=== PATIENT | female | born 1940 | race Caucasian/White ===

== ENCOUNTER 2023-08-26 15:37 | Inpatient (IN) | payer OTHER, SELFPAY ==
--- NOTE | ~2023-08-26 | CT_ITS ---
EXAMINATION: CT HEAD WITHOUT CONTRAST CLINICAL INFORMATION: Confusion. COMPARISON: None available. TECHNIQUE: Contiguous axial imaging was performed from the skull base to vertex without intravenous administration of contrast. This CT examination was performed using dose optimization techniques as appropriate, variously including the following: *Automated exposure control *Adjustment of mA and/or kV according to patient size (this includes techniques or standardized protocols for targeted exams where dose is matched to indication/reason for exam; i.e. extremities or head) *Use of iterative reconstruction technique DLP: 562 mGy-cm FINDINGS: There is no acute intracranial hemorrhage. There is no evidence of acute/subacute cerebral or cerebellar infarction. There is no midline shift or mass effect. No extra-axial fluid collection. The ventricles are normal in size. The ocular lenses are surgically absent. The visualized paranasal sinuses are clear. The mastoid air cells are well aerated. CT/CT head/brain wo IV con IMPRESSION: No acute intracranial pathology.
--- NOTE | ~2023-08-26 | XR_ITS ---
EXAMINATION: XR CHEST CLINICAL INFORMATION: Confusion COMPARISON: None available. TECHNIQUE: 2 views of the chest were obtained. FINDINGS: The cardiac and mediastinal contours are normal. The lungs are clear. No pleural effusion or pneumothorax. Scoliosis and degenerative changes of the thoracolumbar spine. Degenerative changes at the shoulders. XR/XR chest 2V IMPRESSION: No evidence for acute disease in the chest.
[2023-08-26 15:38] VITALS: BP 134/80; PULSE 103; RESP 18; TEMP 36.7; O2SAT 95; BMI 27.3
--- NOTE | 2023-08-26 15:41 | ED_ITS ---
HPI - Psych General Chief Complaint: Psychiatric Symptoms Stated Complaint: crisis Time Seen by Provider: 08/26/23 17:55 Source: patient, family (Patient's son), RN notes reviewed and old records reviewed Mode of arrival: ambulatory Limitations: language barrier (Patient and family declined interpreting service) History of Present Illness ED Provider: Paul HPI Narrative: 83-year-old female with past medical history significant for schizophrenia, hypertension presents for evaluation of paranoia Per the patient she is here because ?I have been confused for a couple of weeks. ? The patient's son states that the patient has been paranoid for the last couple of weeks. The patient also has delusions She believes that members of her holiness are gathering a video of ?all the since I made my entire life to show to the whole holiness. ? The patient was having extrapyramidal symptoms from her previous psych medications Your per the patient's son about 2 and half weeks the patient was started on Abilify has been tapered up The patient's extrapyramidal symptoms have improved but the patient's paranoia has not improved Per the patient's son, this has happened a few times in the past The patient has not had any recent falls or trauma. She denies any other complaints or concerns Related Data Home Medications ?Medication ?Instructions ?Recorded ?Confirmed acetaminophen 325 mg tablet (Pain 650 mg PO NEEDED 08/26/23 08/26/23 Relief (acetaminophen)) amlodipine 2.5 mg tablet 2.5 mg PO DAILY 08/26/23 08/26/23 aripiprazole 5 mg tablet (Abilify) 15 mg PO DAILY 08/26/23 08/26/23 docusate sodium 100 mg capsule 100 mg PO BID 08/26/23 08/26/23 loratadine 10 mg tablet 10 mg PO DAILY 08/26/23 08/26/23 metformin 500 mg tablet 500 mg PO QAM 08/26/23 08/26/23 olanzapine 10 mg tablet 10 mg PO BEDTIME 08/26/23 08/26/23 omeprazole 20 mg capsule,delayed 40 mg PO DAILY 08/26/23 08/26/23 release trazodone 100 mg tablet 100 - 200 mg PO BEDTIME PRN 08/26/23 08/26/23 Insomnia valsartan 160 mg tablet 160 mg PO DAILY 08/26/23 08/26/23 Allergies Allergy/AdvReac Type Severity Reaction Status Date / Time Unable to Assess Allergy Verified 08/26/23 15:48 Review of Systems 2 Constitutional: Constitutional: Denies body ache(s), Denies chills, Denies fever(s), Denies frequent falls and Denies headache(s) ENT: Denies headache(s) Cardiovascular: Cardiovascular: Denies chest pain and Denies dyspnea Respiratory: Respiratory: Denies cough and Denies dyspnea Gastrointestinal: Gastrointestinal: Denies abdominal pain, Denies nausea and Denies vomiting Musculoskeletal: Musculoskeletal: Denies back pain Integumentary/Breasts: Skin/Breast: Denies rash Neurologic: Denies frequent falls and Denies headache(s) Psychiatric: Psychiatric: Reports paranoia PMFSH Social History Social History Smoked in Last 30 Days: No Use of substances other than those prescribed or required for medical reasons: No Advance Directives: No Advance Directives Information Provided: No Do you have a plan to hurt others: No Plan Physical Exam 2 Vital Signs: Vital Signs: Last Vital Signs Temp 97.8 F 08/26/23 18:59 Pulse 83 08/26/23 18:59 Resp 16 08/26/23 18:59 BP 114/51 L 08/26/23 18:59 Pulse Ox 99 08/26/23 18:59 O2 Del Method Room Air 08/26/23 18:23 BMI result Body Mass Index 27.3 Const: General: healthy appearing, comfortable, no acute distress, alert and awake Nutritional Appearance: well nourished Orientation/consciousness: p atient oriented x3 HEENT: Head: Yes normocephalic and Yes atraumatic Eyes: Eyelids: Yes eyelids normal Conjunctivae: conjunctivae normal S clerae: sclerae normal Corneas: corneas normal Pupils: Equal, round and reactive pupils present EOM: EOMs intact bilaterally Neck: Neck: Yes full ROM Resp: Effort & Inspection: normal respiratory effort, able to speak in complete sentences and not labored Skin: General skin exam: elasticity normal Neuro: General: patient oriented x3 Cranial nerves: Yes Equal, round and reactive pupils present and Yes Bilaterally intact EOM present Cognition (Neuro): normal cognition Course Course Course Narrative: This is a Rapid Medical Examination (RME) performed by Williams Dixon PA-C in triage. Full HPI, ROS, assessment and treatment plan per primary provider in the Main ED. 83 yo sinhala speaking female w/ hx of schizophrenia and depression here for eval of visual hallucinations and paranoid delusions x1 week. patient reports feeling increasingly confused. son at bedside to assist w/ history. son believes patient has stopped taking her medications. denies SI/HI. complains of chronic right hip pain. no injury/ trauma. Plan: medical clearance Reevaluation(s) Reevaluation #1: Patient is seen with the care team, she will be a bed search for inpatient psychiatric care. Physician observation starts now. Time: 00:37 Medications Administered Discontinued Medications Generic Name Dose Route Start Last Admin Trade Name Freq PRN Reason Stop Dose Admin Magnesium Sulfate 2 gm in 50 mls @ 25 mls/hr 08/26/23 19:10 08/26/23 19:55 Magnesium Sulfate/H2o IV 08/26/23 21:09 25 mls/hr ONCE ONE Administration Magnesium Oxide 400 mg 08/26/23 19:10 08/26/23 19:55 Magnesium Oxide 400 Mg Tablet PO 08/26/23 19:11 400 mg ONCE ONE Administration Medical Decision Making Medical Decision Making [facility] Narrative: [age]-year-old female presents for evaluation of paranoid delusions. She does have a diagnosed history of schizophrenia. This has been going on for about 2- 1/2 weeks since her medications have been adjusted. Plan for medical clearance and likely care team evaluation. Her magnesium is noted to be low at 1.4 and this will be replaced IV and orally. We will get a CT scan of the brain for evaluation of other etiology of her paranoia but is likely related to her psych history Differential Diagnosis Differential Diagnoses: The differential diagnosis associated with the presentation includes Schizophrenia Decompensated schizophrenia Hypomagnesemia Altered mental status CVA less likely Intracranial mass less likely Lab Data [facility] Lab Attestation statement: I reviewed the patient's lab results. Patient patient has a mild leukocytosis to 11.0. She also has a mild anemia with a hemoglobin 11.9 hematocrit 35.9. There is no significant left shift. Patient's chemistries are significant for a random glucose of 152. No evidence of DKA. Magnesium of 1.4 that was previously mentioned. Thyroid studies and LFTs within normal limits. 08/26/23 16:12 08/26/23 16:12 Labs: Lab Results 08/26/23 08/26/23 Range/Units 16:12 18:35 WBC 11.0 H (4.8-10.8) X10*3/uL RBC 3.94 L (4.20-5.50) X10*6/uL Hgb 11.9 L (12.0-16.0) g/dl Hct 35.9 L (37.0-47.0) % MCV 91.1 (80.0-98.0) fL MCH 30.2 (27.0-33.0) pg MCHC 33.1 (31.0-35.0) g/dl RDW 12.1 (11.0-16.0) % Plt Count 289 (160-400) X10*3/uL MPV 10.3 (9.4-12.3) fL Immature Gran % (Auto) 0.5 H (0.0-0.4) % Neut % (Auto) 57.1 (45-73) % Lymph % (Auto) 24.5 (20-40) % [place] % (Auto) 5.7 (2-11) % Eos % (Auto) 11.3 H (0-4) % Baso % (Auto) 0.9 (0-2) % Lymph # (Auto) 2.7 (1.2-4.9) X10*3/uL [place] # (Auto) 0.6 (0.1-1.2) X10*3/uL Eos # (Auto) 1.2 H (0.0-0.4) X10*3/uL Baso # (Auto) 0.1 (0.0-0.2) X10*3/uL Abs Immat Gran (auto) 0.05 H (0.00-0.03) X10*3/uL Absolute Neuts (auto) 6.3 (2.0-8.3) x10*3/uL Absolute Nucleated RBC 0.000 (0.0-0.012) X10*3/uL Nucleated RBC % (auto) 0.0 (0.0-0.2) /100WBC Sodium 138 (135-145) mmol/L Potassium 4.4 (3.3-5.1) mmol/L Chloride 106 (96-108) mmol/L Carbon Dioxide 22 (22-29) mmol/L Anion Gap 14 (12-20) BUN 18 H (9-16) mg/dL Creatinine 0.95 (0.5-1.4) mg/dL Estim Creat Clear Calc 36.0 Estimated GFR 56 Random Glucose 152 H (60-115) mg/dL Calcium 10.0 (8.4-10.2) mg/dL Magnesium 1.4 L* (1.6-2.6) mg/dL Total Bilirubin 0.2 (0.0-1.0) mg/dL AST 16 (5-31) U/L ALT 18 (0-31) U/L Alkaline Phosphatase 66 (39-117) U/L Ammonia 29 (13-55) umol/L Total Protein 7.2 (6.5-8.0) g/dL Albumin 3.8 (3.5-5.0) g/dL Lipase 40 (8-78) U/L TSH 0.46 (0.32-4.0) uIU/mL Urine Color Yellow Urine Appearance Clear Urine pH 5.5 (5.0-9.0) Ur Specific [place] 1.015 (1.005-1.025) Urine Protein Negative (Neg-Trace) mg/dL Urine Glucose (UA) Negative (Negative) mg/dL Urine Ketones Negative (Negative) mg/dL Urine Blood Negative (Negative) Urine Nitrite Negative (Negative) Ur Leukocyte Esterase Trace H (Negative) Urine RBC 0-2 (0-2) /HPF Urine WBC 0-5 (0-5) /HPF Ur Squamous Epith Cells 3-5 (0-2) /HPF Urine Bacteria None Seen (None Seen) Hyaline Casts 0-2 (0-2) /LPF Salicylates < 5.0 L (15-30) mg/dL Urine Opiates Screen Not Detected (Not Detect) Ur Buprenorphine Scrn Not Detected (Not Detect) ng/mL Ur Oxycodone Screen Not Detected (Not Detect) ng/mL Urine Methadone Screen Not Detected (Not Detect) ng/mL Urine Fentanyl Screen Not Detected (Not Detect) Ur Barbiturates Screen Not Detected (Not Detect) Ur Phencyclidine Scrn Not Detected (Not Detect) Ur Amphetamines Screen Not Detected (Not Detect) U Benzodiazepines Scrn Not Detected (Not Detect) Urine Cocaine Screen Not Detected (Not Detect) U Marijuana (THC) Screen Not Detected (Not Detect) Ethyl Alcohol < 10 mg/dL Independent Interpretation I performed an independent interpretation of an: CT Scan Interpretation: Agree with Radiology interpretation Radiology Impression Discussion of test interpretation with radiology: I have reviewed the radiologist's reading. Radiologist Impression: CT/CT head/brain wo IV con IMPRESSION: No acute intracranial pathology. Discharge Plan Discharge Clinical Impression: Acute psychosis Patient Disposition: Still a Patient Instructions: Schizophrenia (ED) Prescriptions: No Action metformin 500 mg tablet 500 mg PO QAM acetaminophen [Pain Relief (acetaminophen)] 325 mg tablet 650 mg PO NEEDED olanzapine 10 mg tablet 10 mg PO BEDTIME amlodipine 2.5 mg tablet 2.5 mg PO DAILY trazodone 100 mg tablet 100 - 200 mg PO BEDTIME PRN (Reason: Insomnia) docusate sodium 100 mg capsule 100 mg PO BID omeprazole 20 mg capsule,delayed release(DR/EC) 40 mg PO DAILY loratadine 10 mg tablet 10 mg PO DAILY valsartan 160 mg tablet 160 mg PO DAILY aripiprazole [Abilify] 5 mg tablet 15 mg PO DAILY Interventions: [place]-Suicide Risk Severity Scale Last Done: 08/26/23 18:22 Print Language: Arabic
[2023-08-26 16:18] LABS: MANUAL DIFF FLAG NO
[2023-08-26 16:21] LABS: Basophils Absolute Auto 0.1 X10*3/uL (0.0-0.2); Basophils Percent Auto 0.9 % (0-2); Eosinophils Absolute Auto 1.2 X10*3/uL (0.0-0.4); Eosinophils Percent Auto 11.3 % (0-4); Hematocrit 35.9 % (37.0-47.0); Hemoglobin 11.9 g/dl (12.0-16.0); Imm Gran Abs Auto 0.05 X10*3/uL (0.00-0.03); Imm Gran Pct Auto 0.5 % (0.0-0.4); Lymphocytes Absolute Auto 2.7 X10*3/uL (1.2-4.9); Lymphocytes Percent Auto 24.5 % (20-40); Mean Corpuscular HGB Conc 33.1 g/dl (31.0-35.0); Mean Corpuscular Hemoglobin 30.2 pg (27.0-33.0); Mean Corpuscular Volume 91.1 fL (80.0-98.0); Mean Platelet Volume 10.3 fL (9.4-12.3); Monocytes Absolute Auto 0.6 X10*3/uL (0.1-1.2); Monocytes Percent Auto 5.7 % (2-11); Neutrophils Absolute Auto 6.3 x10*3/uL (2.0-8.3); Neutrophils Percent Auto 57.1 % (45-73); Platelet Count 289 X10*3/uL (160-400); Red Blood Count 3.94 X10*6/uL (4.20-5.50); Red Cell Distribution Width 12.1 % (11.0-16.0)
[2023-08-26 16:36] LABS: Ammonia 29 umol/L (13-55)
[2023-08-26 16:47] LABS: Salicylate < 5.0 mg/dL (15-30)
[2023-08-26 16:49] LABS: Alanine Aminotransferase 18 U/L (0-31); Albumin Level 3.8 g/dL (3.5-5.0); Alkaline Phosphatase 66 U/L (39-117); Anion Gap 14 (12-20); Aspartate Amino Transferase 16 U/L (5-31); Bilirubin Total 0.2 mg/dL (0.0-1.0); Blood Urea Nitrogen 18 mg/dL (9-16); Carbon Dioxide 22 mmol/L (22-29); Chloride 106 mmol/L (96-108); Estimated Glomerular Filt Rate 56; Ethanol < 10 mg/dL; Glucose Random 152 mg/dL (60-115); Lipase 40 U/L (8-78); Potassium 4.4 mmol/L (3.3-5.1); Sodium 138 mmol/L (135-145); Total Protein 7.2 g/dL (6.5-8.0)
[2023-08-26 17:05] LABS: TSH reflex Free T4 0.46 uIU/mL (0.32-4.0)
[2023-08-26 17:54] VITALS: BP 124/62; PULSE 80; RESP 15; TEMP 36.8; O2SAT 98
[2023-08-26 18:23] VITALS: BP 124/62; PULSE 80; RESP 15; TEMP 36.8; O2SAT 98
--- NOTE | 2023-08-26 18:24 | PC.NURSE ---
pt alert and oriented. per her son she has been paranoid and imagining people video taping her and threatening to broadcast those videotapes. Son reports she recently stopped some meds due to EPS and her psychiatrist started her on Abilify. Son says this was about 1 week ago and she is taking 1mg. IV inserted and pt on tele monitoring - NSR
[2023-08-26 18:45] LABS: Appearance Urine Clear; Color Urine Yellow; Glucose Urine UA Negative (Negative); Leukocyte Esterase Urine Trace (Negative); Nitrite Urine Negative (Negative); PH 5.5 (5.0-9.0); Specific Gravity - Urine 1.015 (1.005-1.025); UMIC TRIGGER UACC YES; Urine Blood Negative (Negative); Urine Ketones Negative (Negative); Urine Protein Negative (Neg-Trace)
[2023-08-26 18:55] LABS: Bacteria Urine None Seen (None Seen); Hyaline Casts Urine 0-2 /LPF (0-2); RBC Urine 0-2 /HPF (0-2); WBC Urine 0-5 /HPF (0-5)
[2023-08-26 18:57] LABS: Amphetamine Screen Urine Not Detected (Not Detect); Barbiturates, Urine Not Detected (Not Detect); Benzodiazepines Screen Urine Not Detected (Not Detect); Buprenorphine Scr Not Detected (Not Detect); Cannabinoid Screen Urine Not Detected (Not Detect); Cocaine Screen Urine Not Detected (Not Detect); Fentanyl, urine Not Detected (Not Detect); Methadone Screen, Urine Not Detected (Not Detect); Opiate Screen Urine Not Detected (Not Detect); Oxycodone Screen Urine Not Detected (Not Detect); Phencyclidine Screen Urine Not Detected (Not Detect)
[2023-08-26 18:59] VITALS: BP 114/51; PULSE 83; RESP 16; TEMP 36.6; O2SAT 99
[2023-08-26 19:42] LABS: Magnesium 1.4 mg/dL (1.6-2.6)
[2023-08-26] MEDS: Magnesium Oxide 400 MG TABLET PO (19:55)
[2023-08-26] MEDS: Magnesium Sulfate/H2O 2 GM/50 ML PIGGYBACK IV (19:55)
--- NOTE | 2023-08-26 20:25 | PC.NURSE ---
This clinical writer assumed care of this Pt at 1900. Pt calm and cooperative, A&Ox3, reports chronic bilateral leg pain. Pt denies SI/HI/AH/VH. Son at bedside able to provide home meds, med rec done.
[2023-08-27 05:40] VITALS: BP 115/67; PULSE 64; RESP 14; TEMP 36.6; O2SAT 93
--- NOTE | 2023-08-27 06:21 | PC.NURSE ---
Pt ambulated to the BR independently to brush teeth.
[2023-08-27 08:15] VITALS: BP 138/69; PULSE 77; RESP 18; TEMP 36.6; O2SAT 99
[2023-08-27] MEDS: Valsartan 160 MG TABLET PO (09:24)
[2023-08-27] MEDS: amLODIPine Besylate 2.5 MG TABLET PO (09:25)
[2023-08-27] MEDS: Docusate Sodium 100 MG CAPSULE PO (09:25)
[2023-08-27] MEDS: Loratadine 10 MG TABLET PO (09:25)
[2023-08-27] MEDS: Omeprazole 40 MG CAPSULE.DR PO (09:25)
[2023-08-27] MEDS: metFORMIN HCl 500 MG TABLET PO (09:25)
--- NOTE | 2023-08-27 10:28 | PHA.MEDREC ---
Pharmacy Consult ? Medication Reconciliation Pharmacy has completed the medication reconciliation. reviewed med rec done by nursing. Spoke with patient son over the phone to confirm she has been taking abilify 15mg daily for the past 3 days and she stopped taking venlafaxine 9 days ago as it was causing her to have involuntary movements.
--- NOTE | 2023-08-27 14:37 | PC.NURSE ---
Abilify Note Abilify 15mg PO for 0900 on 08/27/23 was unavailable. One time dose of 15mg was ordered but medication is not available in ED. Will inform unit RN that medication still needs to be administered.
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
[2023-08-27 16:27] VITALS: BP 126/86; PULSE 87; RESP 18; TEMP 36.6; O2SAT 99
[2023-08-27 16:28] VITALS: BMI 21.3
--- NOTE | 2023-08-27 19:18 | PC.NURSE ---
Per doctor Amanda it's OK to hold todays dose of Abilify 15mg that was due earlier today.
[2023-08-27 20:00] VITALS: BP 139/64; PULSE 89; RESP 16; TEMP 36.6; O2SAT 95
[2023-08-27] MEDS: hydrOXYzine HCL 25 MG TABLET PO (20:03)
[2023-08-27] MEDS: OLANZapine 10 MG TABLET PO (20:03)
[2023-08-27 20:06] LABS: Glucose, Whole Blood 190 mg/dL (60-115)
[2023-08-28] MEDS: Omeprazole 40 MG CAPSULE.DR PO (06:25)
[2023-08-28] MEDS: Acetaminophen 325 MG TABLET 650 MG PO (06:29)
[2023-08-28 07:00] VITALS: BMI 21.4
[2023-08-28 08:00] VITALS: BP 148/82; PULSE 85; RESP 18; TEMP 36.5; O2SAT 98
--- NOTE | 2023-08-28 08:39 | P.HPPS_ITS ---
[facility] Date of Service: 08/28/23 Chief Complaint: Psychosis Sources of Information: patient interviewed, chart reviewed and crisis/core team assessment reviewed HPI Subjective Notes: [place] Warning and Section 12B Narrative: The patient is an 83-year-old white female, only Gibraltarian-speaking, , mother of adult children, with a past history of schizophrenia as per the report of her son. The patient was brought to the emergency room since she was complaining of psychotic symptoms in the context of noncompliance. The patient suffers from tardive dyskinesia recently there was a change of her medications. She was assessed by the crisis team and transferring to this unit for continuation of care. Apparently, the patient had have a change in her medications 2 weeks ago since she had signs and symptoms of 30 dyskinesia. She was cross taper to Abilify with less symptoms but an exacerbation of her psychosis. According to the crisis team and son's report, in the last 2 weeks she relapsed on paranoid delusions, stating that she had been videotaped and that will be showed at her evangelical. She states that they are cameras looking for her and she had been more anxious. Also another stressor is that her had been admitted to another hospital due to problems with his blood pressure. On the intake interview, the patient reported that she is feeling fine but she was paranoid, internally preoccupied and responding to internal stimuli. She refused to sign any paper without the presence of her son. She was very quiet and refused to answer more elaborate questions. She was able to contract for safety at this moment. Past Psychiatric History: The patient has a prior history of schizophrenia and she had been treated recently. Apparently she has prior psychiatric admissions. The patient is a very poor historian at this moment Medical Evaluation Reviewed: Yes [facility] Family History: Denies Social History: The patient lives with her who is at this moment hospitalized and it is 1 of the major stressors. She has adult children who are involved in her care. Substance History: Denies Trauma History: Denies Diagnostics Vital Signs (24Hr): Vital Signs - 24 hr 08/27/23 16:27 08/27/23 20:00 Temperature 98 F 97.8 F Pulse Rate 87 89 Respiratory Rate 18 16 Blood Pressure 126/86 139/64 Pulse Oximetry 99 95 Oxygen Delivery Method Room Air Room Air BMI result Body Mass Index 21.3 Labs 08/26/23 16:12 08/28/23 09:08 Labs: Laboratory Results - last 48 hr 08/26/23 08/26/23 08/27/23 16:12 18:35 20:00 WBC 11.0 H RBC 3.94 L Hgb 11.9 L Hct 35.9 L MCV 91.1 MCH 30.2 MCHC 33.1 RDW 12.1 Plt Count 289 MPV 10.3 Immature Gran % (Auto) 0.5 H Neut % (Auto) 57.1 Lymph % (Auto) 24.5 [place] % (Auto) 5.7 Eos % (Auto) 11.3 H Baso % (Auto) 0.9 Lymph # (Auto) 2.7 [place] # (Auto) 0.6 Eos # (Auto) 1.2 H Baso # (Auto) 0.1 Abs Immat Gran (auto) 0.05 H Absolute Neuts (auto) 6.3 Absolute Nucleated RBC 0.000 Nucleated RBC % (auto) 0.0 Sodium 138 Potassium 4.4 Chloride 106 Carbon Dioxide 22 Anion Gap 14 BUN 18 H Creatinine 0.95 Estim Creat Clear Calc 36.0 Estimated GFR 56 POC Glucose 190 H Random Glucose 152 H Calcium 10.0 Magnesium 1.4 L* Total Bilirubin 0.2 AST 16 ALT 18 Alkaline Phosphatase 66 Ammonia 29 Total Protein 7.2 Albumin 3.8 Lipase 40 TSH 0.46 Urine Color Yellow Urine Appearance Clear Urine pH 5.5 Ur Specific [place] 1.015 Urine Protein Negative Urine Glucose (UA) Negative Urine Ketones Negative Urine Blood Negative Urine Nitrite Negative Ur Leukocyte Esterase Trace H Urine RBC 0-2 Urine WBC 0-5 Ur Squamous Epith Cells 3-5 Urine Bacteria None Seen Hyaline Casts 0-2 Salicylates < 5.0 L Urine Opiates Screen Not Detected Ur Buprenorphine Scrn Not Detected Ur Oxycodone Screen Not Detected Urine Methadone Screen Not Detected Urine Fentanyl Screen Not Detected Ur Barbiturates Screen Not Detected Ur Phencyclidine Scrn Not Detected Ur Amphetamines Screen Not Detected U Benzodiazepines Scrn Not Detected Urine Cocaine Screen Not Detected U Marijuana (THC) Screen Not Detected Ethyl Alcohol < 10 Imaging Radiology Impressions: ITS Impressions Chest X-Ray 08/26/23 15:59 IMPRESSION: No evidence for acute disease in the chest. Head CT 08/26/23 22:12 IMPRESSION: No acute intracranial pathology. Meds/Allergies Meds Home Medications ?Medication ?Instructions ?Recorded ?Confirmed ?Type acetaminophen 325 mg tablet (Pain 650 mg PO NEEDED 08/26/23 08/26/23 History Relief (acetaminophen)) amlodipine 2.5 mg tablet 2.5 mg PO DAILY 08/26/23 08/26/23 History aripiprazole 5 mg tablet (Abilify) 15 mg PO DAILY 08/26/23 08/26/23 History docusate sodium 100 mg capsule 100 mg PO BID 08/26/23 08/26/23 History loratadine 10 mg tablet 10 mg PO DAILY 08/26/23 08/26/23 History metformin 500 mg tablet 500 mg PO QAM 08/26/23 08/26/23 History olanzapine 10 mg tablet 10 mg PO BEDTIME 08/26/23 08/26/23 History omeprazole 20 mg capsule,delayed 40 mg PO DAILY 08/26/23 08/26/23 History release trazodone 100 mg tablet 100 - 200 mg PO BEDTIME PRN 08/26/23 08/26/23 History Insomnia valsartan 160 mg tablet 160 mg PO DAILY 08/26/23 08/26/23 History Allergies Allergies Allergy/AdvReac Type Severity Reaction Status Date / Time Unable to Assess Allergy Verified 08/26/23 15:48 Mental Status Exam Mental Status Exam Patient Appearance: Appropriate (On hospital gowns) Patient Orientation: Person and Situation Level of Consciousness: Awake and Appropriate Patient Behavior: Guarded and Passive Mood Description: Withdrawn Affect Description: Constricted Patient Cognition Impaired: Yes Ability to Follow Directions: Good Speech Pattern: Clear Hallucinations: Auditory and Visual Delusions: Paranoid Ideation and Ideas of Reference Thought Process: Incoherent, Distracted and Slowed Thinking Thought Content: positive for [place] and positive for Poverty of Content Judgement: Poor Assessment & Plan Assessment & Plan (1) Schizophrenia: Status: Acute Code(s): F20.9 - Schizophrenia, unspecified Plan The patient is an elderly Marshallese female, mostly Gibraltarian-speaking with a prior history of schizophrenia who was brought into the facility for exacerbation of psychotic symptoms in the context of noncompliance. The patient recently have had a change in her medications since she is having tardive dyskinesia. Her symptoms started any condition improved but her psychosis worsen it. Plan 1. Gather collateral information. The patient is a very poor historian and she is unable to provide more details. 2. Continue with Abilify as prescribed. 3. Continue with medical workout. 4. Reassessment with results. 5. Continue 15 minute checks. Patient educated on: diagnosis and therapeutic strategies Informed Consent: further education needed Reason for continued inpatient stay Substantial Risk for: inability to function, rapid decompensation and med/psych decompensation Statement Statement: I have reviewed the history and physical and performed a pertinent examination on my patient. No changes have occurred unless specified. If the History and Physical was not performed prior to admission, the Hospitalist's service will be consulted for completing the admission physical. Time Spent With Patient Time: Total time managing care of this patient today __45__ minutes.
[2023-08-28 08:40] VITALS: BP 148/82
[2023-08-28] MEDS: Loratadine 10 MG TABLET PO (08:40)
[2023-08-28] MEDS: ARIPiprazole 15 MG TABLET PO (08:40)
[2023-08-28] MEDS: metFORMIN HCl 500 MG TABLET PO (08:40)
[2023-08-28] MEDS: amLODIPine Besylate 2.5 MG TABLET PO (08:40)
[2023-08-28] MEDS: Docusate Sodium 100 MG CAPSULE PO ×2 (08:40→20:48)
[2023-08-28] MEDS: Valsartan 160 MG TABLET PO (08:40)
[2023-08-28 09:47] LABS: Alanine Aminotransferase 17 U/L (0-31); Albumin Level 3.4 g/dL (3.5-5.0); Alkaline Phosphatase 64 U/L (39-117); Anion Gap 13 (12-20); Aspartate Amino Transferase 16 U/L (5-31); Bilirubin Total 0.2 mg/dL (0.0-1.0); Blood Urea Nitrogen 17 mg/dL (9-16); Calcium 9.5 mg/dL (8.4-10.2); Carbon Dioxide 24 mmol/L (22-29); Chloride 106 mmol/L (96-108); Cholesterol 240 mg/dL (<200); Creatinine Clr Calc Pharmacy 33.9; Estimated Glomerular Filt Rate > 60; Glucose Fasting 209 mg/dL (60-99); HDL Cholesterol 49 mg/dL (>40); LDL Cholesterol Calculated 141 mg/dL (<100); Potassium 4.5 mmol/L (3.3-5.1); Sodium 138 mmol/L (135-145); Total Protein 6.5 g/dL (6.5-8.0); Triglycerides 251 mg/dL (<150)
[2023-08-28] MEDS: Meclizine HCl 12.5 MG TABLET PO (16:29)
[2023-08-28 19:45] VITALS: BP 117/60; PULSE 87; RESP 18; TEMP 36.2; O2SAT 98
[2023-08-28] MEDS: OLANZapine 10 MG TABLET PO (20:48)
[2023-08-28] MEDS: hydrOXYzine HCL 25 MG TABLET PO (21:32)
[2023-08-28] MEDS: traZODone HCL 100 MG TABLET PO (21:32)
[2023-08-29] MEDS: Omeprazole 40 MG CAPSULE.DR PO (06:08)
[2023-08-29 08:00] VITALS: BP 132/67; PULSE 77; RESP 16; TEMP 36.6; O2SAT 98
[2023-08-29 08:02] VITALS: BP 132/67
[2023-08-29] MEDS: Docusate Sodium 100 MG CAPSULE PO (08:02)
[2023-08-29] MEDS: metFORMIN HCl 500 MG TABLET PO (08:02)
[2023-08-29] MEDS: Valsartan 160 MG TABLET PO (08:02)
[2023-08-29] MEDS: amLODIPine Besylate 2.5 MG TABLET PO (08:02)
[2023-08-29] MEDS: ARIPiprazole 15 MG TABLET PO (08:03)
[2023-08-29] MEDS: Loratadine 10 MG TABLET PO (08:03)
--- NOTE | 2023-08-29 12:18 | HO.PSYCHPN ---
Subjective Subjective Date of Service: 08/29/23 Reason For Visit: Psychosis Subjective Notes: Conditional Voluntary (By healthcare proxy) Healthcare Proxy: Yes Interim History: The nursing staff reported the patient had been guarded withdrawn, stating that people are taking pictures of her very paranoid. She ate 75% of her dinner. She had been preoccupied reported that she has dizziness that improved with meclizine. She received meclizine yesterday slept 8 hours. Today we had a meeting with the social services analyst and her son who is now the healthcare proxy who has signed her conditional voluntary. He explained that they stopped Effexor XR that was producing involuntary movements with Abilify. We will keep on the same medications and reassess in a few days. On interview the patient denies new symptoms she looks internally preoccupied. Mental Status Exam Mental Status Exam Patient Appearance: Appropriate Patient Orientation: Person and Situation Level of Consciousness: Awake and Appropriate Patient Behavior: Guarded and Passive Mood Description: Withdrawn and Constricted Affect Description: Calm and Constricted Patient Cognition Impaired: Yes Ability to Follow Directions: Fair Speech Pattern: Clear Hallucinations: Auditory Delusions: Paranoid Ideation and Ideas of Reference Thought Process: Distracted and Slowed Thinking Thought Content: positive for [place] and positive for Poverty of Content Judgement: Poor Diagnostics Vital Signs (24Hr): Vital Signs - 24 hr 08/28/23 19:45 08/29/23 08:00 08/29/23 08:02 Temperature 97.2 F 97.8 F Pulse Rate 87 77 Respiratory Rate 18 16 Blood Pressure 117/60 132/67 132/67 Pulse Oximetry 98 98 Oxygen Delivery Method Room Air Room Air 08/29/23 08:02 Temperature Pulse Rate Respiratory Rate Blood Pressure 132/67 Pulse Oximetry Oxygen Delivery Method BMI result Body Mass Index 21.4 Labs 08/26/23 16:12 08/28/23 09:08 Labs: Laboratory Results - last 48 hr 08/27/23 08/28/23 20:00 09:08 Sodium 138 Potassium 4.5 Chloride 106 Carbon Dioxide 24 Anion Gap 13 BUN 17 H Creatinine 0.87 Estim Creat Clear Calc 33.9 Estimated GFR > 60 POC Glucose 190 H Fasting Glucose 209 H Calcium 9.5 Total Bilirubin 0.2 AST 16 ALT 17 Alkaline Phosphatase 64 Total Protein 6.5 Albumin 3.4 L Triglycerides 251 H Cholesterol 240 H LDL Cholesterol, Calc 141 H HDL Cholesterol 49 Imaging Radiology Impressions: ITS Impressions Chest X-Ray 08/26/23 15:59 IMPRESSION: No evidence for acute disease in the chest. Head CT 08/26/23 22:12 IMPRESSION: No acute intracranial pathology. Medications Medications Current Medications Acetaminophen (Acetaminophen 325 Mg Tablet) 650 mg PO Q8H PRN PRN Reason: Pain, Mild (Pain Scale 1-3) Last Admin: 08/28/23 06:29 Dose: 650 mg Al Hydroxide/Mg Hydroxide (Magnesium Hydrox/Alum Hydrox 30 Ml Oral.Susp) 30 ml PO Q6H PRN PRN Reason: Heartburn/Nausea Amlodipine Besylate (Amlodipine Besylate 2.5 Mg Tablet) 2.5 mg PO DAILY [facility]; Protocol Last Admin: 08/29/23 08:02 Dose: 2.5 mg Aripiprazole (Aripiprazole 15 Mg Tablet) 15 mg PO DAILY [facility] Last Admin: 08/29/23 08:03 Dose: 15 mg Docusate Sodium (Docusate Sodium 100 Mg Capsule) 100 mg PO BID [facility] Last Admin: 08/29/23 08:02 Dose: 100 mg Hydroxyzine HCl (Hydroxyzine Hcl 25 Mg Tablet) 25 mg PO Q6H PRN PRN Reason: Anxiety Last Admin: 08/28/23 21:32 Dose: 25 mg Loratadine (Loratadine 10 Mg Tablet) 10 mg PO DAILY [facility] Last Admin: 08/29/23 08:03 Dose: 10 mg Magnesium Hydroxide (Milk Of Magnesia 30 Ml Oral.Susp) 30 ml PO DAILY PRN PRN Reason: Constipation Meclizine HCl (Meclizine Hcl 12.5 Mg Tablet) 12.5 mg PO BID PRN PRN Reason: Vertigo Last Admin: 08/28/23 16:29 Dose: 12.5 mg Metformin HCl (Metformin Hcl 500 Mg Tablet) 500 mg PO DAILY [facility] Last Admin: 08/29/23 08:02 Dose: 500 mg Olanzapine (Olanzapine 10 Mg Tablet) 10 mg PO BEDTIME [facility] Last Admin: 08/28/23 20:48 Dose: 10 mg Omeprazole (Omeprazole 40 Mg Capsule.Dr) 40 mg PO DAILY@0630 [facility] Last Admin: 08/29/23 06:08 Dose: 40 mg Trazodone HCl (Trazodone Hcl 100 Mg Tablet) 100 mg PO BEDTIME MRX1 PRN PRN Reason: Insomnia Last Admin: 08/28/23 21:32 Dose: 100 mg Valsartan (Valsartan 160 Mg Tablet) 160 mg PO DAILY [facility]; Protocol Last Admin: 08/29/23 08:02 Dose: 160 mg Allergies Allergies Allergy/AdvReac Type Severity Reaction Status Date / Time Unable to Assess Allergy Verified 08/26/23 15:48 Assessment & Plan Assessment & Plan (1) Schizophrenia: Status: Acute Code(s): F20.9 - Schizophrenia, unspecified Plan The patient is an elderly Citizen [place] female, mostly Lao-speaking with a prior history of schizophrenia who was brought into the facility for exacerbation of psychotic symptoms in the context of noncompliance. The patient recently have had a change in her medications since she is having tardive dyskinesia. Her symptoms started any condition improved but her psychosis worsen it. Plan 1. Gather collateral information. The patient is a very poor historian and she is unable to provide more details. 2. Continue with Abilify as prescribed. 3. Continue with medical workout. 4. Reassessment with results. 5. Continue 15 minute checks. 6. Invoke healthcare proxy. Reason for continued inpatient stay Substantial Risk for: inability to function, rapid decompensation and med/psych decompensation Time Spent With Patient Time: Total time managing care of this patient today __20__ minutes.
[2023-08-29 20:00] VITALS: BP 126/66; PULSE 76; RESP 16; TEMP 36.3; O2SAT 95
[2023-08-29] MEDS: traZODone HCL 100 MG TABLET PO (20:25)
[2023-08-29] MEDS: hydrOXYzine HCL 25 MG TABLET PO (20:25)
[2023-08-29] MEDS: OLANZapine 10 MG TABLET PO (20:25)
[2023-08-29] MEDS: Acetaminophen 325 MG TABLET 650 MG PO (20:31)
[2023-08-30] MEDS: Omeprazole 40 MG CAPSULE.DR PO (06:16)
[2023-08-30] MEDS: Acetaminophen 325 MG TABLET 650 MG PO ×2 (06:17→18:38)
[2023-08-30] MEDS: Meclizine HCl 12.5 MG TABLET PO (06:21)
[2023-08-30 08:00] VITALS: BP 153/72; PULSE 72; RESP 16; TEMP 36.3; O2SAT 100
[2023-08-30] MEDS: ARIPiprazole 15 MG TABLET PO (09:02)
[2023-08-30 09:03] VITALS: BP 153/72
[2023-08-30] MEDS: amLODIPine Besylate 2.5 MG TABLET PO (09:03)
[2023-08-30] MEDS: Valsartan 160 MG TABLET PO (09:03)
[2023-08-30] MEDS: metFORMIN HCl 500 MG TABLET PO (09:04)
[2023-08-30] MEDS: Docusate Sodium 100 MG CAPSULE PO ×2 (09:04→20:33)
[2023-08-30] MEDS: Loratadine 10 MG TABLET PO (09:04)
--- NOTE | 2023-08-30 10:28 | HO.PSYCHPN ---
Subjective Subjective Date of Service: 08/30/23 Reason For Visit: Psychosis Interim History: lyign in bed, calm, cooperative. no questions or complaints. per staff, dizzy this morning, meclizine not effective. [facility] adequate. psychotic Sx at home. paranoid. taking meds. Mental Status Exam Mental Status Exam Patient Appearance: Appropriate Patient Orientation: Person and Situation Level of Consciousness: Awake and Appropriate Patient Behavior: Guarded and Passive Mood Description: Withdrawn and Constricted Affect Description: Calm and Constricted Patient Cognition Impaired: Yes Ability to Follow Directions: Fair Speech Pattern: Clear Hallucinations: Auditory Delusions: Paranoid Ideation and Ideas of Reference Thought Process: Distracted and Slowed Thinking Thought Content: positive for [place] and positive for Poverty of Content Judgement: Poor Diagnostics Vital Signs (24Hr): Vital Signs - 24 hr 08/29/23 20:00 08/30/23 08:00 08/30/23 09:03 Temperature 97.4 F 97.3 F Pulse Rate 76 72 Respiratory Rate 16 16 Blood Pressure 126/66 153/72 H 153/72 H Pulse Oximetry 95 100 Oxygen Delivery Method Room Air Room Air 08/30/23 09:03 Temperature Pulse Rate Respiratory Rate Blood Pressure 153/72 H Pulse Oximetry Oxygen Delivery Method BMI result Body Mass Index 21.4 Labs 08/26/23 16:12 08/28/23 09:08 Imaging Radiology Impressions: ITS Impressions Chest X-Ray 08/26/23 15:59 IMPRESSION: No evidence for acute disease in the chest. Head CT 08/26/23 22:12 IMPRESSION: No acute intracranial pathology. Medications Medications Current Medications Acetaminophen (Acetaminophen 325 Mg Tablet) 650 mg PO Q8H PRN PRN Reason: Pain, Mild (Pain Scale 1-3) Last Admin: 08/30/23 06:17 Dose: 650 mg Al Hydroxide/Mg Hydroxide (Magnesium Hydrox/Alum Hydrox 30 Ml Oral.Susp) 30 ml PO Q6H PRN PRN Reason: Heartburn/Nausea Amlodipine Besylate (Amlodipine Besylate 2.5 Mg Tablet) 2.5 mg PO DAILY [facility]; Protocol Last Admin: 08/30/23 09:03 Dose: 2.5 mg Aripiprazole (Aripiprazole 15 Mg Tablet) 15 mg PO DAILY [facility] Last Admin: 08/30/23 09:02 Dose: 15 mg Docusate Sodium (Docusate Sodium 100 Mg Capsule) 100 mg PO BID [facility] Last Admin: 08/30/23 09:04 Dose: 100 mg Hydroxyzine HCl (Hydroxyzine Hcl 25 Mg Tablet) 25 mg PO Q6H PRN PRN Reason: Anxiety Last Admin: 08/29/23 20:25 Dose: 25 mg Loratadine (Loratadine 10 Mg Tablet) 10 mg PO DAILY [facility] Last Admin: 08/30/23 09:04 Dose: 10 mg Magnesium Hydroxide (Milk Of Magnesia 30 Ml Oral.Susp) 30 ml PO DAILY PRN PRN Reason: Constipation Meclizine HCl (Meclizine Hcl 12.5 Mg Tablet) 12.5 mg PO BID PRN PRN Reason: Vertigo Last Admin: 08/30/23 06:21 Dose: 12.5 mg Metformin HCl (Metformin Hcl 500 Mg Tablet) 500 mg PO DAILY [facility] Last Admin: 08/30/23 09:04 Dose: 500 mg Olanzapine (Olanzapine 10 Mg Tablet) 10 mg PO BEDTIME [facility] Last Admin: 08/29/23 20:25 Dose: 10 mg Omeprazole (Omeprazole 40 Mg Capsule.Dr) 40 mg PO DAILY@0630 [facility] Last Admin: 08/30/23 06:16 Dose: 40 mg Trazodone HCl (Trazodone Hcl 100 Mg Tablet) 100 mg PO BEDTIME MRX1 PRN PRN Reason: Insomnia Last Admin: 08/29/23 20:25 Dose: 100 mg Valsartan (Valsartan 160 Mg Tablet) 160 mg PO DAILY [facility]; Protocol Last Admin: 08/30/23 09:03 Dose: 160 mg Allergies Allergies Allergy/AdvReac Type Severity Reaction Status Date / Time Unable to Assess Allergy Verified 08/26/23 15:48 Assessment & Plan Assessment & Plan (1) Schizophrenia: Status: Acute Code(s): F20.9 - Schizophrenia, unspecified Plan The patient is an elderly [place]alese female, mostly [place]-speaking with a prior history of schizophrenia who was brought into the facility for exacerbation of psychotic symptoms in the context of noncompliance. The patient recently have had a change in her medications since she is having tardive dyskinesia. Her symptoms started any condition improved but her psychosis worsen it. Plan 1. Gather collateral information. The patient is a very poor historian and she is unable to provide more details. 2. Continue with Abilify as prescribed. 3. Continue with medical workout. 4. Reassessment with results. 5. Continue 15 minute checks. 6. Invoke healthcare proxy. Reason for continued inpatient stay Substantial Risk for: inability to function Time Spent With Patient Time: Total time managing care of this patient today ____ minutes.
[2023-08-30 20:00] VITALS: BP 109/66; PULSE 80; RESP 16; TEMP 36.7; O2SAT 94
[2023-08-30] MEDS: OLANZapine 10 MG TABLET PO (20:33)
[2023-08-30] MEDS: hydrOXYzine HCL 25 MG TABLET PO (20:33)
[2023-08-30] MEDS: traZODone HCL 100 MG TABLET PO ×2 (20:33→23:39)
[2023-08-31] MEDS: Acetaminophen 325 MG TABLET 650 MG PO ×2 (06:09→20:29)
[2023-08-31] MEDS: Omeprazole 40 MG CAPSULE.DR PO (06:10)
[2023-08-31] MEDS: Meclizine HCl 12.5 MG TABLET PO (06:10)
[2023-08-31 08:00] VITALS: BP 142/65; PULSE 98; RESP 18; TEMP 36.4; O2SAT 99
[2023-08-31] MEDS: amLODIPine Besylate 2.5 MG TABLET PO (08:29)
[2023-08-31] MEDS: Loratadine 10 MG TABLET PO (08:29)
[2023-08-31] MEDS: metFORMIN HCl 500 MG TABLET PO (08:30)
[2023-08-31] MEDS: Docusate Sodium 100 MG CAPSULE PO (08:30)
[2023-08-31] MEDS: Valsartan 160 MG TABLET PO (08:30)
[2023-08-31] MEDS: ARIPiprazole 15 MG TABLET PO (08:31)
--- NOTE | 2023-08-31 11:13 | P.PNPSI_ITS ---
Subjective Subjective Date of Service: 08/31/23 Reason For Visit: Psychosis Interim History: no change in presentation. no requests or complaints. per staff, anxious, concerned about her who is in hospice. clearer than at admission, denies AH. Mental Status Exam Mental Status Exam Patient Appearance: Appropriate Patient Orientation: Person and Situation Level of Consciousness: Awake and Appropriate Patient Behavior: Guarded and Passive Mood Description: Withdrawn and Constricted Affect Description: Calm and Constricted Patient Cognition Impaired: Yes Ability to Follow Directions: Fair Speech Pattern: Clear Hallucinations: Auditory Delusions: Paranoid Ideation and Ideas of Reference Thought Process: Distracted and Slowed Thinking Thought Content: positive for [place] and positive for Poverty of Content Judgement: Poor Diagnostics Vital Signs (24Hr): Vital Signs - 24 hr 08/30/23 20:00 08/31/23 08:00 Temperature 98.1 F 97.5 F Pulse Rate 80 98 Respiratory Rate 16 18 Blood Pressure 109/66 142/65 H Pulse Oximetry 94 99 Oxygen Delivery Method Room Air Room Air BMI result Body Mass Index 21.4 Labs 08/26/23 16:12 08/28/23 09:08 Imaging Radiology Impressions: ITS Impressions Chest X-Ray 08/26/23 15:59 IMPRESSION: No evidence for acute disease in the chest. Head CT 08/26/23 22:12 IMPRESSION: No acute intracranial pathology. Medications Medications Current Medications Acetaminophen (Acetaminophen 325 Mg Tablet) 650 mg PO Q8H PRN PRN Reason: Pain, Mild (Pain Scale 1-3) Last Admin: 08/31/23 06:09 Dose: 650 mg Al Hydroxide/Mg Hydroxide (Magnesium Hydrox/Alum Hydrox 30 Ml Oral.Susp) 30 ml PO Q6H PRN PRN Reason: Heartburn/Nausea Amlodipine Besylate (Amlodipine Besylate 2.5 Mg Tablet) 2.5 mg PO DAILY [facility]; Protocol Last Admin: 08/31/23 08:29 Dose: 2.5 mg Aripiprazole (Aripiprazole 15 Mg Tablet) 15 mg PO DAILY [facility] Last Admin: 08/31/23 08:31 Dose: 15 mg Docusate Sodium (Docusate Sodium 100 Mg Capsule) 100 mg PO BID [facility] Last Admin: 08/31/23 08:30 Dose: 100 mg Hydroxyzine HCl (Hydroxyzine Hcl 25 Mg Tablet) 25 mg PO Q6H PRN PRN Reason: Anxiety Last Admin: 08/30/23 20:33 Dose: 25 mg Loratadine (Loratadine 10 Mg Tablet) 10 mg PO DAILY [facility] Last Admin: 08/31/23 08:29 Dose: 10 mg Magnesium Hydroxide (Milk Of Magnesia 30 Ml Oral.Susp) 30 ml PO DAILY PRN PRN Reason: Constipation Meclizine HCl (Meclizine Hcl 12.5 Mg Tablet) 12.5 mg PO BID PRN PRN Reason: Vertigo Last Admin: 08/31/23 06:10 Dose: 12.5 mg Metformin HCl (Metformin Hcl 500 Mg Tablet) 500 mg PO DAILY [facility] Last Admin: 08/31/23 08:30 Dose: 500 mg Olanzapine (Olanzapine 10 Mg Tablet) 10 mg PO BEDTIME [facility] Last Admin: 08/30/23 20:33 Dose: 10 mg Omeprazole (Omeprazole 40 Mg Capsule.Dr) 40 mg PO DAILY@0630 [facility] Last Admin: 08/31/23 06:10 Dose: 40 mg Trazodone HCl (Trazodone Hcl 100 Mg Tablet) 100 mg PO BEDTIME MRX1 PRN PRN Reason: Insomnia Last Admin: 08/30/23 23:39 Dose: 100 mg Valsartan (Valsartan 160 Mg Tablet) 160 mg PO DAILY [facility]; Protocol Last Admin: 08/31/23 08:30 Dose: 160 mg Allergies Allergies Allergy/AdvReac Type Severity Reaction Status Date / Time Unable to Assess Allergy Verified 08/26/23 15:48 Assessment & Plan Assessment & Plan (1) Schizophrenia: Status: Acute Code(s): F20.9 - Schizophrenia, unspecified Plan The patient is an elderly [place] female, mostly [place]ese-speaking with a prior history of schizophrenia who was brought into the facility for exacerbation of psychotic symptoms in the context of noncompliance. The patient recently have had a change in her medications since she is having tardive dyskinesia. Her symptoms started any condition improved but her psychosis worsen it. Plan 1. Gather collateral information. The patient is a very poor historian and she is unable to provide more details. 2. Continue with Abilify as prescribed. 3. Continue with medical workout. 4. Reassessment with results. 5. Continue 15 minute checks. 6. Invoke healthcare proxy. Reason for continued inpatient stay Substantial Risk for: inability to function and rapid decompensation Time Spent With Patient Time: Total time managing care of this patient today ____ minutes.
[2023-08-31 20:00] VITALS: BP 120/64; PULSE 87; RESP 16; TEMP 36.4; O2SAT 94
[2023-08-31] MEDS: OLANZapine 10 MG TABLET PO (20:29)
[2023-08-31] MEDS: traZODone HCL 100 MG TABLET PO (20:29)
[2023-08-31] MEDS: hydrOXYzine HCL 25 MG TABLET PO (20:29)
[2023-09-01] MEDS: Omeprazole 40 MG CAPSULE.DR PO (05:46)
[2023-09-01 08:10] VITALS: BP 140/80; PULSE 95; RESP 18; TEMP 36.2; O2SAT 98
[2023-09-01] MEDS: ARIPiprazole 15 MG TABLET PO (09:26)
[2023-09-01 09:27] VITALS: BP 140/80
[2023-09-01] MEDS: Docusate Sodium 100 MG CAPSULE PO ×2 (09:27→21:14)
[2023-09-01] MEDS: hydrOXYzine HCL 25 MG TABLET PO ×2 (09:27→21:19)
[2023-09-01] MEDS: metFORMIN HCl 500 MG TABLET PO (09:27)
[2023-09-01] MEDS: amLODIPine Besylate 2.5 MG TABLET PO (09:27)
[2023-09-01] MEDS: Loratadine 10 MG TABLET PO (09:27)
[2023-09-01] MEDS: Valsartan 160 MG TABLET PO (09:27)
[2023-09-01] MEDS: Acetaminophen 325 MG TABLET 650 MG PO (09:28)
--- NOTE | 2023-09-01 12:40 | HO.PSYCHPN ---
Subjective Subjective Date of Service: 09/01/23 Reason For Visit: Psychosis Subjective Notes: Conditional Voluntary (By healthcare proxy) Healthcare Proxy: Yes Interim History: The nursing staff reported the patient had complained of restless leg syndrome. She denies auditory hallucinations she had been guarded but compliant with medications. She slept 8 hours. Today in the morning, we received a phone call from the family stating that her has and they are going to meet today at 230 in the afternoon to deliver that new. At this moment, the patient was assessed and she looks pleasantly confused denies auditory hallucinations at this moment. Later on, her son came and informed the patient that her she was tearful, appropriate and redirectable. We are going to put her on 5 minute checks with Australian-speaking staff. Mental Status Exam Mental Status Exam Patient Appearance: Appropriate Patient Orientation: Person and Situation Level of Consciousness: Awake and Appropriate Patient Behavior: Guarded and Passive Mood Description: Withdrawn Affect Description: Constricted Patient Cognition Impaired: Yes Ability to Follow Directions: Good Speech Pattern: Clear Hallucinations: None Delusions: Paranoid Ideation and Ideas of Reference Thought Process: Distracted Thought Content: positive for [place] and positive for Poverty of Content Judgement: Fair Diagnostics Vital Signs (24Hr): Vital Signs - 24 hr 08/31/23 20:00 09/01/23 08:10 09/01/23 09:27 Temperature 97.5 F 97.2 F Pulse Rate 87 95 Respiratory Rate 16 18 Blood Pressure 120/64 140/80 H 140/80 H Pulse Oximetry 94 98 Oxygen Delivery Method Room Air Room Air 09/01/23 09:27 Temperature Pulse Rate Respiratory Rate Blood Pressure 140/80 H Pulse Oximetry Oxygen Delivery Method BMI result Body Mass Index 21.4 Labs 08/26/23 16:12 08/28/23 09:08 Imaging Radiology Impressions: ITS Impressions Chest X-Ray 08/26/23 15:59 IMPRESSION: No evidence for acute disease in the chest. Head CT 08/26/23 22:12 IMPRESSION: No acute intracranial pathology. Medications Medications Current Medications Acetaminophen (Acetaminophen 325 Mg Tablet) 650 mg PO Q8H PRN PRN Reason: Pain, Mild (Pain Scale 1-3) Last Admin: 09/01/23 09:28 Dose: 650 mg Al Hydroxide/Mg Hydroxide (Magnesium Hydrox/Alum Hydrox 30 Ml Oral.Susp) 30 ml PO Q6H PRN PRN Reason: Heartburn/Nausea Amlodipine Besylate (Amlodipine Besylate 2.5 Mg Tablet) 2.5 mg PO DAILY [facility]; Protocol Last Admin: 09/01/23 09:27 Dose: 2.5 mg Aripiprazole (Aripiprazole 15 Mg Tablet) 15 mg PO DAILY [facility] Last Admin: 09/01/23 09:26 Dose: 15 mg Docusate Sodium (Docusate Sodium 100 Mg Capsule) 100 mg PO BID [facility] Last Admin: 09/01/23 09:27 Dose: 100 mg Hydroxyzine HCl (Hydroxyzine Hcl 25 Mg Tablet) 25 mg PO Q6H PRN PRN Reason: Anxiety Last Admin: 09/01/23 09:27 Dose: 25 mg Loratadine (Loratadine 10 Mg Tablet) 10 mg PO DAILY [facility] Last Admin: 09/01/23 09:27 Dose: 10 mg Magnesium Hydroxide (Milk Of Magnesia 30 Ml Oral.Susp) 30 ml PO DAILY PRN PRN Reason: Constipation Meclizine HCl (Meclizine Hcl 12.5 Mg Tablet) 12.5 mg PO BID PRN PRN Reason: Vertigo Last Admin: 08/31/23 06:10 Dose: 12.5 mg Metformin HCl (Metformin Hcl 500 Mg Tablet) 500 mg PO DAILY [facility] Last Admin: 09/01/23 09:27 Dose: 500 mg Olanzapine (Olanzapine 10 Mg Tablet) 10 mg PO BEDTIME [facility] Last Admin: 08/31/23 20:29 Dose: 10 mg Omeprazole (Omeprazole 40 Mg Capsule.Dr) 40 mg PO DAILY@0630 [facility] Last Admin: 09/01/23 05:46 Dose: 40 mg Trazodone HCl (Trazodone Hcl 100 Mg Tablet) 100 mg PO BEDTIME MRX1 PRN PRN Reason: Insomnia Last Admin: 08/31/23 20:29 Dose: 100 mg Valsartan (Valsartan 160 Mg Tablet) 160 mg PO DAILY [facility]; Protocol Last Admin: 09/01/23 09:27 Dose: 160 mg Allergies Allergies Allergy/AdvReac Type Severity Reaction Status Date / Time Unable to Assess Allergy Verified 08/26/23 15:48 Assessment & Plan Assessment & Plan (1) Schizophrenia: Status: Acute Code(s): F20.9 - Schizophrenia, unspecified Plan The patient is an elderly [place] female, mostly Australian-speaking with a prior history of schizophrenia who was brought into the facility for exacerbation of psychotic symptoms in the context of noncompliance. The patient recently have had a change in her medications since she is having tardive dyskinesia. Her symptoms started any condition improved but her psychosis worsen it. Plan 1. Gather collateral information. The patient is a very poor historian and she is unable to provide more details. 2. Continue with Abilify as prescribed. 3. Continue with medical workout. 4. Reassessment with results. 5. Continue 15 minute checks. 6. Invoke healthcare proxy. 7. 5 minute checks starting on August 31 after the of her . 8. Start p.r.n. Ativan anxiety Reason for continued inpatient stay Substantial Risk for: inability to function, rapid decompensation and med/psych decompensation Time Spent With Patient Time: Total time managing care of this patient today __20__ minutes.
[2023-09-01] MEDS: LORazepam 0.5 MG TABLET 0.25 MG PO (16:00)
[2023-09-01 20:00] VITALS: BP 113/57; PULSE 69; TEMP 36.9; O2SAT 93
[2023-09-01] MEDS: traZODone HCL 100 MG TABLET PO (21:13)
[2023-09-01] MEDS: OLANZapine 10 MG TABLET PO (21:14)
[2023-09-02] MEDS: Omeprazole 40 MG CAPSULE.DR PO (06:03)
[2023-09-02 08:00] VITALS: BP 143/63; PULSE 85; RESP 18; TEMP 36.5; O2SAT 98
[2023-09-02 08:56] VITALS: BP 143/63
[2023-09-02] MEDS: metFORMIN HCl 500 MG TABLET PO (08:56)
[2023-09-02] MEDS: Valsartan 160 MG TABLET PO (08:56)
[2023-09-02] MEDS: Loratadine 10 MG TABLET PO (08:56)
[2023-09-02] MEDS: Docusate Sodium 100 MG CAPSULE PO ×2 (08:56→21:41)
[2023-09-02] MEDS: ARIPiprazole 15 MG TABLET PO (08:56)
[2023-09-02 08:57] VITALS: BP 143/63
[2023-09-02] MEDS: amLODIPine Besylate 2.5 MG TABLET PO (08:57)
[2023-09-02] MEDS: Acetaminophen 325 MG TABLET 650 MG PO (12:01)
--- NOTE | 2023-09-02 12:12 | P.PNPSI_ITS ---
Subjective Subjective Date of Service: 09/02/23 Reason For Visit: Psychosis Subjective Notes: Conditional Voluntary Interim History: The nursing staff reported the patient had been tearful, yesterday she learned that her . She has been isolative slept 8 hours. She is on 5 minutes checks. On interview the patient reports that she is feeling sad about the passing of her , no evidence of hallucinations or delusions at this moment. Mental Status Exam Mental Status Exam Patient Appearance: Appropriate Patient Orientation: Person and Situation Level of Consciousness: Awake Patient Behavior: Guarded and Passive Mood Description: Calm Affect Description: Constricted and Sad Patient Cognition Impaired: Yes Ability to Follow Directions: Good Speech Pattern: Clear Hallucinations: None Delusions: Not Present Thought Process: Distracted and Linear Thought Content: positive for [place] and positive for Poverty of Content Judgement: Fair Diagnostics Vital Signs (24Hr): Vital Signs - 24 hr 09/01/23 20:00 09/02/23 08:00 09/02/23 08:56 Temperature 98.4 F 97.7 F Pulse Rate 69 85 Respiratory Rate 18 Blood Pressure 113/57 L 143/63 H 143/63 H Pulse Oximetry 93 98 Oxygen Delivery Method Room Air Room Air 09/02/23 08:57 Temperature Pulse Rate Respiratory Rate Blood Pressure 143/63 H Pulse Oximetry Oxygen Delivery Method BMI result Body Mass Index 21.4 Labs 08/26/23 16:12 08/28/23 09:08 Imaging Radiology Impressions: ITS Impressions Chest X-Ray 08/26/23 15:59 IMPRESSION: No evidence for acute disease in the chest. Head CT 08/26/23 22:12 IMPRESSION: No acute intracranial pathology. Medications Medications Current Medications Acetaminophen (Acetaminophen 325 Mg Tablet) 650 mg PO Q8H PRN PRN Reason: Pain, Mild (Pain Scale 1-3) Last Admin: 09/02/23 12:01 Dose: 650 mg Al Hydroxide/Mg Hydroxide (Magnesium Hydrox/Alum Hydrox 30 Ml Oral.Susp) 30 ml PO Q6H PRN PRN Reason: Heartburn/Nausea Amlodipine Besylate (Amlodipine Besylate 2.5 Mg Tablet) 2.5 mg PO DAILY [facility]; Protocol Last Admin: 09/02/23 08:57 Dose: 2.5 mg Aripiprazole (Aripiprazole 15 Mg Tablet) 15 mg PO DAILY [facility] Last Admin: 09/02/23 08:56 Dose: 15 mg Docusate Sodium (Docusate Sodium 100 Mg Capsule) 100 mg PO BID [facility] Last Admin: 09/02/23 08:56 Dose: 100 mg Hydroxyzine HCl (Hydroxyzine Hcl 25 Mg Tablet) 25 mg PO Q6H PRN PRN Reason: Anxiety Last Admin: 09/01/23 21:19 Dose: 25 mg Loratadine (Loratadine 10 Mg Tablet) 10 mg PO DAILY [facility] Last Admin: 09/02/23 08:56 Dose: 10 mg Lorazepam (Lorazepam 0.5 Mg Tablet) 0.25 mg PO Q6H PRN PRN Reason: Anxiety Last Admin: 09/01/23 16:00 Dose: 0.25 mg Magnesium Hydroxide (Milk Of Magnesia 30 Ml Oral.Susp) 30 ml PO DAILY PRN PRN Reason: Constipation Meclizine HCl (Meclizine Hcl 12.5 Mg Tablet) 12.5 mg PO BID PRN PRN Reason: Vertigo Last Admin: 08/31/23 06:10 Dose: 12.5 mg Metformin HCl (Metformin Hcl 500 Mg Tablet) 500 mg PO DAILY [facility] Last Admin: 09/02/23 08:56 Dose: 500 mg Olanzapine (Olanzapine 10 Mg Tablet) 10 mg PO BEDTIME [facility] Last Admin: 09/01/23 21:14 Dose: 10 mg Omeprazole (Omeprazole 40 Mg Capsule.Dr) 40 mg PO DAILY@0630 [facility] Last Admin: 09/02/23 06:03 Dose: 40 mg Trazodone HCl (Trazodone Hcl 100 Mg Tablet) 100 mg PO BEDTIME MRX1 PRN PRN Reason: Insomnia Last Admin: 09/01/23 21:13 Dose: 100 mg Valsartan (Valsartan 160 Mg Tablet) 160 mg PO DAILY [facility]; Protocol Last Admin: 09/02/23 08:56 Dose: 160 mg Allergies Allergies Allergy/AdvReac Type Severity Reaction Status Date / Time Unable to Assess Allergy Verified 08/26/23 15:48 Assessment & Plan Assessment & Plan (1) Schizophrenia: Status: Acute Code(s): F20.9 - Schizophrenia, unspecified Plan The patient is an elderly Irish female, mostly Lithuanian-speaking with a prior history of schizophrenia who was brought into the facility for exacerbation of psychotic symptoms in the context of noncompliance. The patient recently have had a change in her medications since she is having tardive dyskinesia. Her symptoms started any condition improved but her psychosis worsen it. Plan 1. Gather collateral information. The patient is a very poor historian and she is unable to provide more details. 2. Continue with Abilify as prescribed. 3. Continue with medical workout. 4. Reassessment with results. 5. Continue 15 minute checks. On August 31 we changed to 5 minutes checks since the patient has learned that her . 6. Invoke healthcare proxy. 7. 5 minute checks starting on August 31 after the of her . 8. Start p.r.n. Ativan anxiety Reason for continued inpatient stay Substantial Risk for: inability to function, rapid decompensation and med/psych decompensation Time Spent With Patient Time: Total time managing care of this patient today __20__ minutes.
[2023-09-02] MEDS: Meclizine HCl 12.5 MG TABLET PO (16:19)
[2023-09-02 20:00] VITALS: BP 150/72; PULSE 83; RESP 16; TEMP 36.4; O2SAT 98
[2023-09-02] MEDS: OLANZapine 10 MG TABLET PO (21:41)
[2023-09-02] MEDS: traZODone HCL 100 MG TABLET PO (21:41)
[2023-09-03] MEDS: Omeprazole 40 MG CAPSULE.DR PO (06:11)
[2023-09-03 07:42] VITALS: BP 144/70; PULSE 84; RESP 16; TEMP 36.5; O2SAT 99
[2023-09-03 09:30] VITALS: BP 144/70
[2023-09-03] MEDS: Docusate Sodium 100 MG CAPSULE PO ×2 (09:30→20:45)
[2023-09-03] MEDS: metFORMIN HCl 500 MG TABLET PO (09:30)
[2023-09-03] MEDS: amLODIPine Besylate 2.5 MG TABLET PO (09:30)
[2023-09-03] MEDS: ARIPiprazole 15 MG TABLET PO (09:30)
[2023-09-03] MEDS: Loratadine 10 MG TABLET PO (09:30)
[2023-09-03 09:31] VITALS: BP 144/70
[2023-09-03] MEDS: Valsartan 160 MG TABLET PO (09:31)
--- NOTE | 2023-09-03 14:48 | P.PNPSI_ITS ---
Subjective Subjective Date of Service: 09/03/23 Reason For Visit: Psychosis Subjective Notes: Conditional Voluntary Interim History: The nursing staff reported the patient remains on her bed most of the time withdrawn sad, mourning the loss of her . Yesterday she was exit seeking but easily redirectable. The occupational therapist reported they tried to do a [place] in [place] but she could not do it. On interview the patient reports paranoid delusions stating that people are taking video tapes and he did not her doing sexual acts. She is fully convinced about this elusive thought. Mental Status Exam Mental Status Exam Patient Appearance: Appropriate (On hospital gowns) Patient Orientation: Person and Situation Level of Consciousness: Awake and Appropriate Patient Behavior: Guarded and Passive Mood Description: Withdrawn Affect Description: Constricted Patient Cognition Impaired: Yes Ability to Follow Directions: Good Speech Pattern: Clear Hallucinations: None Delusions: Paranoid Ideation and Ideas of Reference Thought Process: Illogical Thought Content: positive for [place] and positive for Thought Blocking Judgement: Poor Diagnostics Vital Signs (24Hr): Vital Signs - 24 hr 09/02/23 20:00 09/03/23 07:42 09/03/23 09:30 Temperature 97.5 F 97.7 F Pulse Rate 83 84 Respiratory Rate 16 16 Blood Pressure 150/72 H 144/70 H 144/70 H Pulse Oximetry 98 99 Oxygen Delivery Method Room Air Room Air 09/03/23 09:31 Temperature Pulse Rate Respiratory Rate Blood Pressure 144/70 H Pulse Oximetry Oxygen Delivery Method BMI result Body Mass Index 21.4 Labs 08/26/23 16:12 08/28/23 09:08 Imaging Radiology Impressions: ITS Impressions Chest X-Ray 08/26/23 15:59 IMPRESSION: No evidence for acute disease in the chest. Head CT 08/26/23 22:12 IMPRESSION: No acute intracranial pathology. Medications Medications Current Medications Acetaminophen (Acetaminophen 325 Mg Tablet) 650 mg PO Q8H PRN PRN Reason: Pain, Mild (Pain Scale 1-3) Last Admin: 09/02/23 12:01 Dose: 650 mg Al Hydroxide/Mg Hydroxide (Magnesium Hydrox/Alum Hydrox 30 Ml Oral.Susp) 30 ml PO Q6H PRN PRN Reason: Heartburn/Nausea Amlodipine Besylate (Amlodipine Besylate 2.5 Mg Tablet) 2.5 mg PO DAILY [facility]; Protocol Last Admin: 09/03/23 09:30 Dose: 2.5 mg Aripiprazole (Aripiprazole 15 Mg Tablet) 15 mg PO DAILY [facility] Last Admin: 09/03/23 09:30 Dose: 15 mg Docusate Sodium (Docusate Sodium 100 Mg Capsule) 100 mg PO BID [facility] Last Admin: 09/03/23 09:30 Dose: 100 mg Hydroxyzine HCl (Hydroxyzine Hcl 25 Mg Tablet) 25 mg PO Q6H PRN PRN Reason: Anxiety Last Admin: 09/01/23 21:19 Dose: 25 mg Loratadine (Loratadine 10 Mg Tablet) 10 mg PO DAILY [facility] Last Admin: 09/03/23 09:30 Dose: 10 mg Lorazepam (Lorazepam 0.5 Mg Tablet) 0.25 mg PO Q6H PRN PRN Reason: Anxiety Last Admin: 09/01/23 16:00 Dose: 0.25 mg Magnesium Hydroxide (Milk Of Magnesia 30 Ml Oral.Susp) 30 ml PO DAILY PRN PRN Reason: Constipation Meclizine HCl (Meclizine Hcl 12.5 Mg Tablet) 12.5 mg PO BID PRN PRN Reason: Vertigo Last Admin: 09/02/23 16:19 Dose: 12.5 mg Metformin HCl (Metformin Hcl 500 Mg Tablet) 500 mg PO DAILY [facility] Last Admin: 09/03/23 09:30 Dose: 500 mg Olanzapine (Olanzapine 10 Mg Tablet) 10 mg PO BEDTIME [facility] Last Admin: 09/02/23 21:41 Dose: 10 mg Omeprazole (Omeprazole 40 Mg Capsule.Dr) 40 mg PO DAILY@0630 [facility] Last Admin: 09/03/23 06:11 Dose: 40 mg Trazodone HCl (Trazodone Hcl 100 Mg Tablet) 100 mg PO BEDTIME MRX1 PRN PRN Reason: Insomnia Last Admin: 09/02/23 21:41 Dose: 100 mg Valsartan (Valsartan 160 Mg Tablet) 160 mg PO DAILY [facility]; Protocol Last Admin: 09/03/23 09:31 Dose: 160 mg Allergies Allergies Allergy/AdvReac Type Severity Reaction Status Date / Time Unable to Assess Allergy Verified 08/26/23 15:48 Assessment & Plan Assessment & Plan (1) Schizophrenia: Status: Acute Code(s): F20.9 - Schizophrenia, unspecified Plan The patient is an elderly Mongolian female, mostly Mauritian-speaking with a prior history of schizophrenia who was brought into the facility for exacerbation of psychotic symptoms in the context of noncompliance. The patient recently have had a change in her medications since she is having tardive dyskinesia. Her symptoms started any condition improved but her psychosis worsen it. Plan 1. Gather collateral information. The patient is a very poor historian and she is unable to provide more details. 2. Continue with Abilify as prescribed. 3. Continue with medical workout. 4. Reassessment with results. 5. Continue 15 minute checks. On August 31 we changed to 5 minutes checks since the patient has learned that her . 6. Invoke healthcare proxy. 7. 5 minute checks starting on August 31 after the of her . 8. Start p.r.n. Ativan anxiety Reason for continued inpatient stay Substantial Risk for: inability to function, rapid decompensation and med/psych decompensation Time Spent With Patient Time: Total time managing care of this patient today __20__ minutes.
[2023-09-03] MEDS: Acetaminophen 325 MG TABLET 650 MG PO (15:28)
[2023-09-03 20:00] VITALS: BP 110/64; PULSE 80; RESP 16; TEMP 36.6; O2SAT 94
[2023-09-03] MEDS: traZODone HCL 100 MG TABLET PO (20:45)
[2023-09-03] MEDS: OLANZapine 10 MG TABLET PO (20:45)
[2023-09-04] MEDS: Omeprazole 40 MG CAPSULE.DR PO (05:50)
[2023-09-04 07:00] VITALS: BMI 21.9
[2023-09-04 08:09] LABS: Creatinine Clr Calc Pharmacy 34.3; Estimated Glomerular Filt Rate > 60
[2023-09-04 09:10] VITALS: BP 144/60; PULSE 94; RESP 16; TEMP 35.8; O2SAT 97
[2023-09-04 09:18] VITALS: BP 144/60
[2023-09-04] MEDS: Valsartan 160 MG TABLET PO (09:18)
[2023-09-04] MEDS: amLODIPine Besylate 2.5 MG TABLET PO (09:18)
[2023-09-04] MEDS: ARIPiprazole 15 MG TABLET PO (09:19)
[2023-09-04] MEDS: Docusate Sodium 100 MG CAPSULE PO ×2 (09:19→20:39)
[2023-09-04] MEDS: Loratadine 10 MG TABLET PO (09:19)
[2023-09-04] MEDS: metFORMIN HCl 500 MG TABLET PO (09:19)
[2023-09-04] MEDS: Magnesium Hydrox/Alum Hydrox 30 ML ORAL.SUSP PO (09:29)
--- NOTE | 2023-09-04 11:53 | HO.PSYCHPN ---
Subjective Subjective Date of Service: 09/04/23 Reason For Visit: Psychosis Subjective Notes: Conditional Voluntary Interim History: The nursing staff reported the patient had been seclusive in her room, quiet isolative still dysphoric since her . He took p.r.n. medication at night for sleep. She remains delusional. On interview the patient denies new symptoms states that she has been followed and videotaped. She has TD symptoms and she wants to treat it. Mental Status Exam Mental Status Exam Patient Appearance: Appropriate Patient Orientation: Person and Situation Level of Consciousness: Awake and Appropriate Patient Behavior: Guarded and Passive Mood Description: Withdrawn Affect Description: Constricted Patient Cognition Impaired: Yes Ability to Follow Directions: Good Speech Pattern: Clear Hallucinations: None Delusions: Paranoid Ideation and Ideas of Reference Thought Process: Distracted and Slowed Thinking Thought Content: positive for [place], positive for [place] and positive for Poverty of Content Judgement: Fair Diagnostics Vital Signs (24Hr): Vital Signs - 24 hr 09/03/23 20:00 09/04/23 09:10 09/04/23 09:18 Temperature 97.9 F 96.5 F L Pulse Rate 80 94 Respiratory Rate 16 16 Blood Pressure 110/64 144/60 H 144/60 H Pulse Oximetry 94 97 Oxygen Delivery Method Room Air Room Air 09/04/23 09:18 Temperature Pulse Rate Respiratory Rate Blood Pressure 144/60 H Pulse Oximetry Oxygen Delivery Method BMI result Body Mass Index 21.9 Labs 08/26/23 16:12 09/04/23 07:43 Labs: Laboratory Results - last 48 hr 09/04/23 07:43 Creatinine 0.86 Estim Creat Clear Calc 34.3 Estimated GFR > 60 Imaging Radiology Impressions: ITS Impressions Chest X-Ray 08/26/23 15:59 IMPRESSION: No evidence for acute disease in the chest. Head CT 08/26/23 22:12 IMPRESSION: No acute intracranial pathology. Medications Medications Current Medications Acetaminophen (Acetaminophen 325 Mg Tablet) 650 mg PO Q8H PRN PRN Reason: Pain, Mild (Pain Scale 1-3) Last Admin: 09/03/23 15:28 Dose: 650 mg Al Hydroxide/Mg Hydroxide (Magnesium Hydrox/Alum Hydrox 30 Ml Oral.Susp) 30 ml PO Q6H PRN PRN Reason: Heartburn/Nausea Last Admin: 09/04/23 09:29 Dose: 30 ml Amlodipine Besylate (Amlodipine Besylate 2.5 Mg Tablet) 2.5 mg PO DAILY [facility]; Protocol Last Admin: 09/04/23 09:18 Dose: 2.5 mg Aripiprazole (Aripiprazole 15 Mg Tablet) 15 mg PO DAILY [facility] Last Admin: 09/04/23 09:19 Dose: 15 mg Docusate Sodium (Docusate Sodium 100 Mg Capsule) 100 mg PO BID [facility] Last Admin: 09/04/23 09:19 Dose: 100 mg Hydroxyzine HCl (Hydroxyzine Hcl 25 Mg Tablet) 25 mg PO Q6H PRN PRN Reason: Anxiety Last Admin: 09/01/23 21:19 Dose: 25 mg Loratadine (Loratadine 10 Mg Tablet) 10 mg PO DAILY [facility] Last Admin: 09/04/23 09:19 Dose: 10 mg Lorazepam (Lorazepam 0.5 Mg Tablet) 0.25 mg PO Q6H PRN PRN Reason: Anxiety Last Admin: 09/01/23 16:00 Dose: 0.25 mg Magnesium Hydroxide (Milk Of Magnesia 30 Ml Oral.Susp) 30 ml PO DAILY PRN PRN Reason: Constipation Meclizine HCl (Meclizine Hcl 12.5 Mg Tablet) 12.5 mg PO BID PRN PRN Reason: Vertigo Last Admin: 09/02/23 16:19 Dose: 12.5 mg Metformin HCl (Metformin Hcl 500 Mg Tablet) 500 mg PO DAILY [facility] Last Admin: 09/04/23 09:19 Dose: 500 mg Olanzapine (Olanzapine 10 Mg Tablet) 10 mg PO BEDTIME [facility] Last Admin: 09/03/23 20:45 Dose: 10 mg Omeprazole (Omeprazole 40 Mg Capsule.Dr) 40 mg PO DAILY@0630 [facility] Last Admin: 09/04/23 05:50 Dose: 40 mg Trazodone HCl (Trazodone Hcl 100 Mg Tablet) 100 mg PO BEDTIME MRX1 PRN PRN Reason: Insomnia Last Admin: 09/03/23 20:45 Dose: 100 mg Valsartan (Valsartan 160 Mg Tablet) 160 mg PO DAILY [facility]; Protocol Last Admin: 09/04/23 09:18 Dose: 160 mg Allergies Allergies Allergy/AdvReac Type Severity Reaction Status Date / Time Unable to Assess Allergy Verified 08/26/23 15:48 Assessment & Plan Assessment & Plan (1) Schizophrenia: Status: Acute Code(s): F20.9 - Schizophrenia, unspecified Plan The patient is an elderly [place]ian female, mostly Korean-speaking with a prior history of schizophrenia who was brought into the facility for exacerbation of psychotic symptoms in the context of noncompliance. The patient recently have had a change in her medications since she is having tardive dyskinesia. Her symptoms started any condition improved but her psychosis worsen it. Plan 1. Gather collateral information. The patient is a very poor historian and she is unable to provide more details. 2. Continue with Abilify as prescribed. 3. Continue with medical workout. 4. Reassessment with results. 5. Continue 15 minute checks. On August 31 we changed to 5 minutes checks since the patient has learned that her . 6. Invoke healthcare proxy. 7. 5 minute checks starting on August 31 after the of her . 8. Start p.r.n. Ativan anxiety Reason for continued inpatient stay Substantial Risk for: inability to function, rapid decompensation and med/psych decompensation Time Spent With Patient Time: Total time managing care of this patient today _20___ minutes.
[2023-09-04 20:00] VITALS: BP 119/58; PULSE 83; RESP 18; TEMP 35.9; O2SAT 98
[2023-09-04] MEDS: traZODone HCL 100 MG TABLET PO (20:39)
[2023-09-04] MEDS: OLANZapine 10 MG TABLET PO (20:39)
[2023-09-05] MEDS: Omeprazole 40 MG CAPSULE.DR PO (06:27)
[2023-09-05 08:00] VITALS: BP 132/72; PULSE 86; RESP 16; TEMP 36
[2023-09-05 08:56] VITALS: BP 132/72
[2023-09-05] MEDS: ARIPiprazole 15 MG TABLET PO (08:56)
[2023-09-05] MEDS: Docusate Sodium 100 MG CAPSULE PO ×2 (08:56→20:38)
[2023-09-05] MEDS: metFORMIN HCl 500 MG TABLET PO (08:56)
[2023-09-05] MEDS: Valsartan 160 MG TABLET PO (08:56)
[2023-09-05] MEDS: Loratadine 10 MG TABLET PO (08:56)
[2023-09-05 08:57] VITALS: BP 132/72
[2023-09-05] MEDS: amLODIPine Besylate 2.5 MG TABLET PO (08:57)
[2023-09-05] MEDS: Meclizine HCl 12.5 MG TABLET PO (14:18)
--- NOTE | 2023-09-05 14:20 | P.PNPSI_ITS ---
Subjective Subjective Date of Service: 09/05/23 Reason For Visit: Psychosis Subjective Notes: Conditional Voluntary Interim History: The nursing staff reported no changes in her mental status, she she remains sad after the passing of her . On interview the patient denies new symptoms. Mental Status Exam Mental Status Exam Patient Appearance: Appropriate Patient Orientation: Person and Situation Level of Consciousness: Awake Patient Behavior: Guarded and Passive Mood Description: Withdrawn Affect Description: Constricted Patient Cognition Impaired: Yes Ability to Follow Directions: Good Speech Pattern: Clear Hallucinations: None Delusions: Ideas of Reference Thought Process: Distracted and Slowed Thinking Thought Content: positive for [place] and positive for Poverty of Content Judgement: Fair Diagnostics Vital Signs (24Hr): Vital Signs - 24 hr 09/04/23 20:00 09/05/23 08:00 09/05/23 08:56 Temperature 96.7 F L 96.8 F Pulse Rate 83 86 Respiratory Rate 18 16 Blood Pressure 119/58 L 132/72 132/72 Pulse Oximetry 98 Oxygen Delivery Method Room Air 09/05/23 08:57 Temperature Pulse Rate Respiratory Rate Blood Pressure 132/72 Pulse Oximetry Oxygen Delivery Method BMI result Body Mass Index 21.9 Labs 08/26/23 16:12 09/04/23 07:43 Labs: Laboratory Results - last 48 hr 09/04/23 07:43 Creatinine 0.86 Estim Creat Clear Calc 34.3 Estimated GFR > 60 Imaging Radiology Impressions: ITS Impressions Chest X-Ray 08/26/23 15:59 IMPRESSION: No evidence for acute disease in the chest. Head CT 08/26/23 22:12 IMPRESSION: No acute intracranial pathology. Medications Medications Current Medications Acetaminophen (Acetaminophen 325 Mg Tablet) 650 mg PO Q8H PRN PRN Reason: Pain, Mild (Pain Scale 1-3) Last Admin: 09/03/23 15:28 Dose: 650 mg Al Hydroxide/Mg Hydroxide (Magnesium Hydrox/Alum Hydrox 30 Ml Oral.Susp) 30 ml PO Q6H PRN PRN Reason: Heartburn/Nausea Last Admin: 09/04/23 09:29 Dose: 30 ml Amlodipine Besylate (Amlodipine Besylate 2.5 Mg Tablet) 2.5 mg PO DAILY [facility]; Protocol Last Admin: 09/05/23 08:57 Dose: 2.5 mg Aripiprazole (Aripiprazole 15 Mg Tablet) 15 mg PO DAILY [facility] Last Admin: 09/05/23 08:56 Dose: 15 mg Docusate Sodium (Docusate Sodium 100 Mg Capsule) 100 mg PO BID [facility] Last Admin: 09/05/23 08:56 Dose: 100 mg Hydroxyzine HCl (Hydroxyzine Hcl 25 Mg Tablet) 25 mg PO Q6H PRN PRN Reason: Anxiety Last Admin: 09/01/23 21:19 Dose: 25 mg Loratadine (Loratadine 10 Mg Tablet) 10 mg PO DAILY [facility] Last Admin: 09/05/23 08:56 Dose: 10 mg Lorazepam (Lorazepam 0.5 Mg Tablet) 0.25 mg PO Q6H PRN PRN Reason: Anxiety Last Admin: 09/01/23 16:00 Dose: 0.25 mg Magnesium Hydroxide (Milk Of Magnesia 30 Ml Oral.Susp) 30 ml PO DAILY PRN PRN Reason: Constipation Meclizine HCl (Meclizine Hcl 12.5 Mg Tablet) 12.5 mg PO BID PRN PRN Reason: Vertigo Last Admin: 09/05/23 14:18 Dose: 12.5 mg Metformin HCl (Metformin Hcl 500 Mg Tablet) 500 mg PO DAILY [facility] Last Admin: 09/05/23 08:56 Dose: 500 mg Olanzapine (Olanzapine 10 Mg Tablet) 10 mg PO BEDTIME [facility] Last Admin: 09/04/23 20:39 Dose: 10 mg Omeprazole (Omeprazole 40 Mg Capsule.Dr) 40 mg PO DAILY@0630 [facility] Last Admin: 09/05/23 06:27 Dose: 40 mg Trazodone HCl (Trazodone Hcl 100 Mg Tablet) 100 mg PO BEDTIME MRX1 PRN PRN Reason: Insomnia Last Admin: 09/04/23 20:39 Dose: 100 mg Valsartan (Valsartan 160 Mg Tablet) 160 mg PO DAILY [facility]; Protocol Last Admin: 09/05/23 08:56 Dose: 160 mg Allergies Allergies Allergy/AdvReac Type Severity Reaction Status Date / Time Unable to Assess Allergy Verified 08/26/23 15:48 Assessment & Plan Assessment & Plan (1) Schizophrenia: Status: Acute Code(s): F20.9 - Schizophrenia, unspecified Plan The patient is an elderly [place] Islander female, mostly Ghanaian-speaking with a prior history of schizophrenia who was brought into the facility for exacerbation of psychotic symptoms in the context of noncompliance. The patient recently have had a change in her medications since she is having tardive dyskinesia. Her symptoms started any condition improved but her psychosis worsen it. Plan 1. Gather collateral information. The patient is a very poor historian and she is unable to provide more details. 2. Continue with Abilify as prescribed. 3. Continue with medical workout. 4. Reassessment with results. 5. Continue 15 minute checks. On August 31 we changed to 5 minutes checks since the patient has learned that her . 6. Invoke healthcare proxy. 7. 5 minute checks starting on August 31 after the of her . 8. Start p.r.n. Ativan anxiety Reason for continued inpatient stay Substantial Risk for: inability to function, rapid decompensation and med/psych decompensation Time Spent With Patient Time: Total time managing care of this patient today ___20_ minutes.
[2023-09-05 19:08] VITALS: BP 150/71; PULSE 81; RESP 18; TEMP 36.4; O2SAT 94
[2023-09-05] MEDS: OLANZapine 10 MG TABLET PO (20:38)
[2023-09-05] MEDS: traZODone HCL 100 MG TABLET PO (20:38)
[2023-09-06] MEDS: Omeprazole 40 MG CAPSULE.DR PO (07:03)
[2023-09-06 08:32] VITALS: BP 141/84; PULSE 90; RESP 18; TEMP 36.6; O2SAT 99
[2023-09-06 08:56] VITALS: BP 141/84
[2023-09-06] MEDS: Docusate Sodium 100 MG CAPSULE PO ×2 (08:56→21:02)
[2023-09-06] MEDS: Loratadine 10 MG TABLET PO (08:56)
[2023-09-06] MEDS: ARIPiprazole 15 MG TABLET PO (08:56)
[2023-09-06] MEDS: LORazepam 0.5 MG TABLET 0.25 MG PO (08:56)
[2023-09-06] MEDS: Valsartan 160 MG TABLET PO (08:56)
[2023-09-06 08:57] VITALS: BP 141/84
[2023-09-06] MEDS: Meclizine HCl 12.5 MG TABLET PO (08:57)
[2023-09-06] MEDS: amLODIPine Besylate 2.5 MG TABLET PO (08:57)
[2023-09-06] MEDS: metFORMIN HCl 500 MG TABLET PO (08:57)
[2023-09-06] MEDS: Acetaminophen 325 MG TABLET 650 MG PO (16:28)
--- NOTE | 2023-09-06 18:06 | HO.PSYCHPN ---
Subjective Subjective Date of Service: 09/06/23 Reason For Visit: Psychosis Interim History: Met with patient; discussed with team Patient calm and pleasant; taking medications. Continues to have some lower limb movement that might be due to medication side effect. Patient said she is feeling better and hopes to discharge Friday. She said her son talk to the doctor and that this is the plan. Mental Status Exam Mental Status Exam Patient Appearance: Appropriate Patient Orientation: Person, Place and Situation Level of Consciousness: Awake Patient Behavior: Cooperative, Passive and Good Eye Contact Mood Description: Withdrawn Affect Description: Constricted Patient Cognition Impaired: Yes Ability to Follow Directions: Good Speech Pattern: Clear Hallucinations: None Delusions: Ideas of Reference Thought Process: Distracted and Slowed Thinking Thought Content: positive for [place] and positive for Poverty of Content Judgement and Insight: Improved Diagnostics Vital Signs (24Hr): Vital Signs - 24 hr 09/05/23 19:08 09/06/23 08:32 09/06/23 08:56 Temperature 97.5 F 97.8 F Pulse Rate 81 90 Respiratory Rate 18 18 Blood Pressure 150/71 H 141/84 H 141/84 H Pulse Oximetry 94 99 Oxygen Delivery Method Room Air Room Air 09/06/23 08:57 Temperature Pulse Rate Respiratory Rate Blood Pressure 141/84 H Pulse Oximetry Oxygen Delivery Method BMI result Body Mass Index 21.9 Labs 08/26/23 16:12 09/04/23 07:43 Imaging Radiology Impressions: ITS Impressions Chest X-Ray 08/26/23 15:59 IMPRESSION: No evidence for acute disease in the chest. Head CT 08/26/23 22:12 IMPRESSION: No acute intracranial pathology. Medications Medications Current Medications Acetaminophen (Acetaminophen 325 Mg Tablet) 650 mg PO Q8H PRN PRN Reason: Pain, Mild (Pain Scale 1-3) Last Admin: 09/06/23 16:28 Dose: 650 mg Al Hydroxide/Mg Hydroxide (Magnesium Hydrox/Alum Hydrox 30 Ml Oral.Susp) 30 ml PO Q6H PRN PRN Reason: Heartburn/Nausea Last Admin: 09/04/23 09:29 Dose: 30 ml Amlodipine Besylate (Amlodipine Besylate 2.5 Mg Tablet) 2.5 mg PO DAILY [facility]; Protocol Last Admin: 09/06/23 08:57 Dose: 2.5 mg Aripiprazole (Aripiprazole 15 Mg Tablet) 15 mg PO DAILY [facility] Last Admin: 09/06/23 08:56 Dose: 15 mg Docusate Sodium (Docusate Sodium 100 Mg Capsule) 100 mg PO BID [facility] Last Admin: 09/06/23 08:56 Dose: 100 mg Hydroxyzine HCl (Hydroxyzine Hcl 25 Mg Tablet) 25 mg PO Q6H PRN PRN Reason: Anxiety Last Admin: 09/01/23 21:19 Dose: 25 mg Loratadine (Loratadine 10 Mg Tablet) 10 mg PO DAILY [facility] Last Admin: 09/06/23 08:56 Dose: 10 mg Magnesium Hydroxide (Milk Of Magnesia 30 Ml Oral.Susp) 30 ml PO DAILY PRN PRN Reason: Constipation Meclizine HCl (Meclizine Hcl 12.5 Mg Tablet) 12.5 mg PO BID PRN PRN Reason: Vertigo Last Admin: 09/06/23 08:57 Dose: 12.5 mg Metformin HCl (Metformin Hcl 500 Mg Tablet) 500 mg PO DAILY [facility] Last Admin: 09/06/23 08:57 Dose: 500 mg Olanzapine (Olanzapine 10 Mg Tablet) 10 mg PO BEDTIME [facility] Last Admin: 09/05/23 20:38 Dose: 10 mg Omeprazole (Omeprazole 40 Mg Capsule.Dr) 40 mg PO DAILY@0630 [facility] Last Admin: 09/06/23 07:03 Dose: 40 mg Trazodone HCl (Trazodone Hcl 100 Mg Tablet) 100 mg PO BEDTIME MRX1 PRN PRN Reason: Insomnia Last Admin: 09/05/23 20:38 Dose: 100 mg Valsartan (Valsartan 160 Mg Tablet) 160 mg PO DAILY [facility]; Protocol Last Admin: 09/06/23 08:56 Dose: 160 mg Allergies Allergies Allergy/AdvReac Type Severity Reaction Status Date / Time Unable to Assess Allergy Verified 08/26/23 15:48 Assessment & Plan Assessment & Plan (1) Schizophrenia: Status: Acute Code(s): F20.9 - Schizophrenia, unspecified Plan The patient is an elderly Indian female, mostly Serbian-speaking with a prior history of schizophrenia who was brought into the facility for exacerbation of psychotic symptoms in the context of noncompliance. The patient recently have had a change in her medications since she is having tardive dyskinesia. Her symptoms started any condition improved but her psychosis worsen it. 09/05 continue current treatment plan Plan 1. Gather collateral information. The patient is a very poor historian and she is unable to provide more details. 2. Continue with Abilify as prescribed. 3. Continue with medical workout. 4. Reassessment with results. 5. Continue 15 minute checks. On August 31 we changed to 5 minutes checks since the patient has learned that her . 6. Invoke healthcare proxy. 7. 5 minute checks starting on August 31 after the of her . 8. [facility] Patient educated on: diagnosis Informed Consent: understands and further education needed Reason for continued inpatient stay Substantial Risk for: med/psych decompensation Time Spent With Patient Time: Total time managing care of this patient today ____ minutes.
[2023-09-06 20:00] VITALS: BP 121/58; PULSE 73; RESP 18; TEMP 36.6; O2SAT 95
[2023-09-06] MEDS: OLANZapine 10 MG TABLET PO (21:02)
[2023-09-06] MEDS: traZODone HCL 100 MG TABLET PO (21:02)
[2023-09-06] MEDS: hydrOXYzine HCL 25 MG TABLET PO (21:09)
[2023-09-07] MEDS: Omeprazole 40 MG CAPSULE.DR PO (06:13)
[2023-09-07 09:45] VITALS: BP 151/81; PULSE 87; RESP 18; TEMP 36.6; O2SAT 97
[2023-09-07 09:52] VITALS: BP 151/81
[2023-09-07] MEDS: amLODIPine Besylate 2.5 MG TABLET PO (09:52)
[2023-09-07] MEDS: ARIPiprazole 15 MG TABLET PO (09:52)
[2023-09-07] MEDS: polyethylene glycoL 3350 17 GM POWD.PACK PO (09:52)
[2023-09-07] MEDS: metFORMIN HCl 500 MG TABLET PO (09:52)
[2023-09-07 09:53] VITALS: BP 151/81
[2023-09-07] MEDS: Loratadine 10 MG TABLET PO (09:53)
[2023-09-07] MEDS: Docusate Sodium 100 MG CAPSULE PO ×2 (09:53→20:31)
[2023-09-07] MEDS: Valsartan 160 MG TABLET PO (09:53)
[2023-09-07] MEDS: Acetaminophen 325 MG TABLET 650 MG PO (14:55)
--- NOTE | 2023-09-07 15:38 | P.PNPSI_ITS ---
Subjective Subjective Date of Service: 09/07/23 Reason For Visit: Psychosis Interim History: Met with patient; discussed with team Patient sitting up, well groomed, eating dinner. She complained of back pain however Tylenol was helpful. Anticipating going home soon Mental Status Exam Mental Status Exam Patient Appearance: Well Grooomed and Appropriate Patient Orientation: Person and Situation Level of Consciousness: Awake and Appropriate Patient Behavior: Guarded and Passive Mood Description: Withdrawn Affect Description: Constricted Patient Cognition Impaired: Yes Ability to Follow Directions: Good Speech Pattern: Clear Hallucinations: None Delusions: Paranoid Ideation and Ideas of Reference Thought Process: Distracted and Slowed Thinking Thought Content: positive for [place] and positive for Poverty of Content Judgement: Fair Diagnostics Vital Signs (24Hr): Vital Signs - 24 hr 09/06/23 20:00 09/07/23 09:45 09/07/23 09:52 Temperature 97.9 F 97.9 F Pulse Rate 73 87 Respiratory Rate 18 18 Blood Pressure 121/58 L 151/81 H 151/81 H Pulse Oximetry 95 97 Oxygen Delivery Method Room Air Room Air 09/07/23 09:53 Temperature Pulse Rate Respiratory Rate Blood Pressure 151/81 H Pulse Oximetry Oxygen Delivery Method BMI result Body Mass Index 21.9 Labs 08/26/23 16:12 09/04/23 07:43 Imaging Radiology Impressions: ITS Impressions Chest X-Ray 08/26/23 15:59 IMPRESSION: No evidence for acute disease in the chest. Head CT 08/26/23 22:12 IMPRESSION: No acute intracranial pathology. Medications Medications Current Medications Acetaminophen (Acetaminophen 325 Mg Tablet) 650 mg PO Q8H PRN PRN Reason: Pain, Mild (Pain Scale 1-3) Last Admin: 09/07/23 14:55 Dose: 650 mg Al Hydroxide/Mg Hydroxide (Magnesium Hydrox/Alum Hydrox 30 Ml Oral.Susp) 30 ml PO Q6H PRN PRN Reason: Heartburn/Nausea Last Admin: 09/04/23 09:29 Dose: 30 ml Amlodipine Besylate (Amlodipine Besylate 2.5 Mg Tablet) 2.5 mg PO DAILY [facility]; Protocol Last Admin: 09/07/23 09:52 Dose: 2.5 mg Aripiprazole (Aripiprazole 15 Mg Tablet) 15 mg PO DAILY [facility] Last Admin: 09/07/23 09:52 Dose: 15 mg Bisacodyl (Bisacodyl 5 Mg Tablet.Dr) 10 mg PO DAILY PRN PRN Reason: Constipation Docusate Sodium (Docusate Sodium 100 Mg Capsule) 100 mg PO BID [facility] Last Admin: 09/07/23 09:53 Dose: 100 mg Hydroxyzine HCl (Hydroxyzine Hcl 25 Mg Tablet) 25 mg PO Q6H PRN PRN Reason: Anxiety Last Admin: 09/06/23 21:09 Dose: 25 mg Loratadine (Loratadine 10 Mg Tablet) 10 mg PO DAILY [facility] Last Admin: 09/07/23 09:53 Dose: 10 mg Magnesium Hydroxide (Milk Of Magnesia 30 Ml Oral.Susp) 30 ml PO DAILY PRN PRN Reason: Constipation Meclizine HCl (Meclizine Hcl 12.5 Mg Tablet) 12.5 mg PO BID PRN PRN Reason: Vertigo Last Admin: 09/06/23 08:57 Dose: 12.5 mg Metformin HCl (Metformin Hcl 500 Mg Tablet) 500 mg PO DAILY [facility] Last Admin: 09/07/23 09:52 Dose: 500 mg Olanzapine (Olanzapine 10 Mg Tablet) 10 mg PO BEDTIME [facility] Last Admin: 09/06/23 21:02 Dose: 10 mg Omeprazole (Omeprazole 40 Mg Capsule.Dr) 40 mg PO DAILY@0630 [facility] Last Admin: 09/07/23 06:13 Dose: 40 mg Polyethylene Glycol (Polyethylene Glycol 3350 17 Gm Powd.Pack) 17 gm PO DAILY [facility] Last Admin: 09/07/23 09:52 Dose: 17 gm Trazodone HCl (Trazodone Hcl 100 Mg Tablet) 100 mg PO BEDTIME MRX1 PRN PRN Reason: Insomnia Last Admin: 09/06/23 21:02 Dose: 100 mg Valsartan (Valsartan 160 Mg Tablet) 160 mg PO DAILY [facility]; Protocol Last Admin: 09/07/23 09:53 Dose: 160 mg Allergies Allergies Allergy/AdvReac Type Severity Reaction Status Date / Time Unable to Assess Allergy Verified 08/26/23 15:48 Assessment & Plan Assessment & Plan (1) Schizophrenia: Status: Acute Code(s): F20.9 - Schizophrenia, unspecified Plan The patient is an elderly [place] female, mostly Gibraltarian-speaking with a prior history of schizophrenia who was brought into the facility for exacerbation of psychotic symptoms in the context of noncompliance. The patient recently have had a change in her medications since she is having tardive dyskinesia. Her symptoms started any condition improved but her psychosis worsen it. 09/05 continue current treatment plan 09/06 patient complained of back pain however Tylenol found helpful; otherwise continue current treatment plan Plan 1. Gather collateral information. The patient is a very poor historian and she is unable to provide more details. 2. Continue with Abilify as prescribed. 3. Continue with medical workout. 4. Reassessment with results. 5. Continue 15 minute checks. On August 31 we changed to 5 minutes checks since the patient has learned that her . 6. Invoke healthcare proxy. 7. 5 minute checks starting on August 31 after the of her . 8. Start p.r.n. Ativan anxiety Patient educated on: diagnosis Informed Consent: understands Reason for continued inpatient stay Substantial Risk for: stable for discharge Time Spent With Patient Time: Total time managing care of this patient today ____ minutes.
[2023-09-07 20:00] VITALS: BP 121/56; PULSE 73; RESP 18; TEMP 36.7; O2SAT 96
[2023-09-07] MEDS: OLANZapine 10 MG TABLET PO (20:30)
[2023-09-07] MEDS: traZODone HCL 100 MG TABLET PO (21:05)
[2023-09-07] MEDS: hydrOXYzine HCL 25 MG TABLET PO (21:05)
[2023-09-08] MEDS: Omeprazole 40 MG CAPSULE.DR PO (05:53)
--- NOTE | 2023-09-08 06:33 | P.DS_ITS ---
DS: Providers Provider Date of Service: 09/08/23 Date of admission: 08/27/23 15:25 Date of discharge: 09/08/23 Primary care physician: Dacia Spencer MD Attending physician on discharge: Robert Camacho DS: Diagnosis Discharge Diagnosis (1) Schizophrenia: Status: Acute DS: Medications Discharge Medications Home Medications: Home Medications ?Medication ?Instructions ?Recorded ?Confirmed acetaminophen 325 mg tablet (Pain 650 mg PO NEEDED 08/26/23 08/26/23 Relief (acetaminophen)) amlodipine 2.5 mg tablet 2.5 mg PO DAILY 08/26/23 08/26/23 aripiprazole 5 mg tablet (Abilify) 15 mg PO DAILY 08/26/23 08/26/23 docusate sodium 100 mg capsule 100 mg PO BID 08/26/23 08/26/23 loratadine 10 mg tablet 10 mg PO DAILY 08/26/23 08/26/23 metformin 500 mg tablet 500 mg PO QAM 08/26/23 08/26/23 olanzapine 10 mg tablet 10 mg PO BEDTIME 08/26/23 08/26/23 omeprazole 20 mg capsule,delayed 40 mg PO DAILY 08/26/23 08/26/23 release trazodone 100 mg tablet 100 - 200 mg PO BEDTIME PRN 08/26/23 08/26/23 Insomnia valsartan 160 mg tablet 160 mg PO DAILY 08/26/23 08/26/23 Mental Status Exam Mental Status Exam Patient Appearance: Well Grooomed and Appropriate Patient Orientation: Person and Situation Level of Consciousness: Awake and Appropriate Patient Behavior: Guarded and Passive Mood Description: Withdrawn Affect Description: Constricted Patient Cognition Impaired: Yes Ability to Follow Directions: Good Speech Pattern: Clear Hallucinations: None Delusions: Paranoid Ideation and Ideas of Reference Thought Process: Distracted and Slowed Thinking Thought Content: positive for [place] and positive for Poverty of Content Judgement: Fair Data Data Completed and Pending Completed studies during hospitalization [Text1]: 09/04/23 07:43 Creatinine 0.86 Estim Creat Clear Calc 34.3 Estimated GFR > 60 Imaging Diagnostic Imaging Impressions Chest X-Ray 08/26/23 15:59 IMPRESSION: No evidence for acute disease in the chest. Head CT 08/26/23 22:12 IMPRESSION: No acute intracranial pathology. DS: Summary Hospital Course Hospital Course: The patient is an 83-year-old [place] female, mostly only Bolivian-speaking with a past history of schizophrenia who was brought to the emergency room for exacerbation of psychosis in the context of medication changes. The patient suffers from tardive dyskinesia and recently Effexor was added at worsened her symptoms. It was taper it off and added Abilify titrated up to 15 mg but the patient relapsed on her psychotic symptoms. She was assessed by crisis and transferring to this facility for psychiatric stabilization. Please see the HPI of the admission note for further details. On admission, the patient was very dysphoric and psychotic stating that she had been videotaped and putting to move is. Also she has paranoid delusions stating t there people following here. We review her list of medications and she is on Zyprexa 15 mg p.o. q.h.s. and the recent addition of Abilify. We had a family meeting with her son who is the primary caregiver and reported that Effexor worsened her talkative dyskinesia symptoms and he was stopped and since then the patient decompensated. Her outpatient provider added Abilify up to 15 mg but with no effect. While she was in the unit, the patient was pleasant, cooperative with chronic paranoid delusions but no behavioral response. While she was in the unit, we found out that her . We informed the family in a family meeting with the patient and she was tearful. She had been mourning the loss of her but she was future oriented and cooperative. She was able to process her loss. Even though she was chronically paranoid but with no behavioral response. The family reported that the patient will felt much better if she could attend to the of her . We discussed at length risks benefits and they agreed to discharge her early this Friday. The patient was future oriented with no changes in her mental status, safe to be discharged in the community. She will be taking care by her family. Time spent discussing smoking cessation with patient: 3 to 10 minutes Status at Discharge Cognitive/behavioral status at discharge: Impaired at baseline Functional status at discharge: independent ambulation Overall status at discharge: patient is back to baseline Time Spent with Patient Time attestation: Total time managing care of this patient today __30__ minutes. Time spent: Less than 30 minutes Discharge Plan Discharge Anticipated Discharge Date/Time: 09/08/23 10:00 Patient Disposition: Home, Self-Care Discharge Diagnosis: Schizophrenia Tardive dyskinesia Referrals: BAYLEE WOOD, MEDICATION PROVIDER [Other] - 09/29/23 9:00 am ([facility]) Dacia Cerna MD [Primary Care Provider] - 1 Week Discharge Medications: New acetaminophen 325 mg Tablet 650 mg PO Q8H PRN (Reason: Pain, Mild (Pain Scale 1-3)) 30 Days Qty: 60 0RF aripiprazole 15 mg Tablet 15 mg PO DAILY 30 Days Qty: 30 0RF polyethylene glycol 3350 17 gram Powder In Packet 17 g PO DAILY 30 Days Qty: 30 0RF omeprazole 40 mg Capsule,Delayed Release(Dr/Ec) 40 mg PO DAILY@0630 30 Days Qty: 30 0RF Continued metformin 500 mg tablet 500 mg PO QAM 30 Days Qty: 30 0RF olanzapine 10 mg tablet 10 mg PO BEDTIME 30 Days Qty: 30 0RF amlodipine 2.5 mg tablet 2.5 mg PO DAILY 30 Days Qty: 30 0RF trazodone 100 mg tablet 100 - 200 mg PO BEDTIME PRN (Reason: Insomnia) 30 Days Qty: 60 0RF docusate sodium 100 mg capsule 100 mg PO BID Qty: 60 0RF loratadine 10 mg tablet 10 mg PO DAILY Qty: 30 0RF valsartan 160 mg tablet 160 mg PO DAILY 30 Days Qty: 30 0RF Discontinued acetaminophen [Pain Relief (acetaminophen)] 325 mg tablet 650 mg PO NEEDED omeprazole 20 mg capsule,delayed release(DR/EC) 40 mg PO DAILY aripiprazole [Abilify] 5 mg tablet 15 mg PO DAILY Discharge Orders: Discharge Order (Routine); Ordered 09/08/23 Ordered By: Robert Camacho Diet: Advance to usual diet Activity on Discharge: As tolerated Stand Alone Forms: Patient Portal Discharge page, Community Support Print Language: Bolivian Care Plan Goals: Care plan goals achieved in this admission with titrated up Abilify up to 15 mg as per suggestion of her outpatient provider. Health Concerns: Continue treatment with primary care physician and other outpatient providers. Plan of Treatment: Continue treatment with outpatient providers. Assessment: The patient is an elderly [place] female with a past history of schizophrenia who was stable in the community until there were med changes due to exacerbation of tardive dyskinesia with the addition of Effexor that it was discontinue before admission. She was titrated on Abilify with no major side effects. At this moment the patient is ready to go back to the community. An early discharge was arranged since she recently lost her and she is coping appropriately. She has very good social support in the community. Patient Instructions: Schizophrenia (ED)
[2023-09-08] MEDS: Loratadine 10 MG TABLET PO (08:06)
[2023-09-08 08:07] VITALS: BP 170/78
[2023-09-08] MEDS: metFORMIN HCl 500 MG TABLET PO (08:07)
[2023-09-08] MEDS: Docusate Sodium 100 MG CAPSULE PO (08:07)
[2023-09-08] MEDS: ARIPiprazole 15 MG TABLET PO (08:07)
[2023-09-08] MEDS: amLODIPine Besylate 2.5 MG TABLET PO (08:07)
[2023-09-08] MEDS: Valsartan 160 MG TABLET PO (08:07)
[2023-09-08] MEDS: polyethylene glycoL 3350 17 GM POWD.PACK PO (08:08)
== END 2023-09-08 09:10 | disposition home or self-care (01) | DRG 885 ==
LOC: HO.ED 08-27 15:01 → HO.PGERI 08-27 15:29
PROVIDERS: Physician Assistant; Physician Assistant Medical; Admitting Provider Psychiatry & Neurology Psychiatry; Emergency Provider Internal Medicine; PCP Internal Medicine; Visit Provider Psychiatry & Neurology Psychiatry
DX: F20.9 Schizophrenia, unspecified (principal); G24.01 Drug induced subacute dyskinesia; T43.215A Adverse effect of selective serotonin and norepinephrine reuptake inhibitors, initial encounter; Z79.899 Other long term (current) drug therapy
CPT/HCPCS: 36415; 70450; 71046; 80053; 80061; 80179; 80307; 81001; 82140; 82565; 82947; 83690; 83735; 84443; 85025; 99285; J3475; S9485

== ENCOUNTER → 2023-08-27 15:25 | Outpatient (BNV) | payer OTHER, SELFPAY | PROVIDERS: Admitting Provider Psychiatry & Neurology Psychiatry; Emergency Provider Internal Medicine; PCP Internal Medicine; Visit Provider Psychiatry & Neurology Psychiatry | DX: F20.0 Paranoid schizophrenia (principal) | CPT/HCPCS: 90792; 99231; 99232; 99238 ==